=== PATIENT | female | born 1935 | race Caucasian/White ===

== ENCOUNTER 2016-08-03 00:55 | Inpatient (IN) | payer MEDICARE, OTHER ==
[2016-08-03] MEDS ORDERED: SODIUM CHLORIDE 0.9% 1000ML 1,000 ML IVS ONE ×2 (01:14→07:20)
[2016-08-03] MEDS ORDERED: PROMETHAZINE HCL INJ 25 MG in SODIUM CHLORIDE 0.9% 50ML 50 ML IVPB ONE (01:15)
[2016-08-03] MEDS ORDERED: PROMETHAZINE HCL INJ 25 MG/ML VIAL ONE (01:19)
[2016-08-03] MEDS ORDERED: SODIUM CHLORIDE 0.9% 50ML 50 ML ONE (01:20)
[2016-08-03] MEDS ORDERED: ONDANSETRON ODT 8 MG TAB SL SCH (01:30)
[2016-08-03] MEDS ORDERED: AZITHROMYCIN IV 500 MG in SODIUM CHLORIDE 0.9% 250ML 250 ML IVPB ONE (02:05)
[2016-08-03] MEDS ORDERED: SODIUM CHLORIDE 0.9% 250ML 250 ML ONE (02:57)
[2016-08-03] MEDS ORDERED: AZITHROMYCIN IV 500 MG VIAL IVPB ONE (02:57)
--- NOTE | 2016-08-03 06:36 | ED.PDOC ---
History of Present Illness - General Chief Complaint: GI Problem Stated Complaint: N/v/D Time Seen by Provider: 08/03/16 01:08 Source: patient Exam Limitations: no limitations - History of Present Illness Initial Comments: the patient is a 81-year-old female presenting to the emergency room secondary to approximately 3 hours of nausea vomiting and diarrhea. No blood in either. No bile. No fever. No abdominal pain. She has not eaten anything unusual. No back pain. No syncope but she did have a near syncopal episode when getting out of the shower after she had been throwing up a while. She does have a history of some reflux issues. Timing/Duration: 4-6 hours Severity: severe Improving Factors: medication Worsening Factors: nothing Associated Symptoms: loss of appetite, malaise, nausea/vomiting, weakness Allergies/Adverse Reactions: Allergies Penicillins Allergy (Severe, Verified 08/03/16 01:00) Rash SOB, hives Home Medications: Ambulatory Orders Isosorbide Mononitrate [Isosorbide Mononitrate ER] 30 mg PO DAILY 08/02/13 Oxybutynin 5 mg PO BID 08/02/13 Pantoprazole Sodium 40 mg PO DAILY 08/02/13 Propranolol HCl 40 mg PO BID 08/02/13 Simvastatin 80 mg PO HS 08/02/13 Aspirin [Aspirin Childrens] 325 mg PO DAILY 09/27/14 B-Complex Vitamins [B Complex] 1 cap PO DAILY 09/27/14 Folic Acid 800 mcg PO DAILY 09/27/14 Gelatin 600 mg PO DAILY 09/27/14 Azithromycin 500 mg PO DAILY #3 tab 08/03/16 Ondansetron [Zofran Odt] 4 mg PO Q4H PRN #10 tab 08/03/16 Review of Systems - Review of Systems Constitutional: States: malaise, weakness EENTM: States: no symptoms reported Respiratory: States: no symptoms reported Cardiology: States: no symptoms reported Gastrointestinal/Abdominal: States: diarrhea, nausea, vomiting Genitourinary: States: no symptoms reported Musculoskeletal: States: no symptoms reported Skin: States: no symptoms reported Neurological: States: anxiety, weakness - generalized and mild Endocrine: States: no symptoms reported All other Systems: No Change from Baseline Past Medical History (General) - Patient Medical History Hx Seizures: No Hx Stroke: No Hx Dementia: No Hx Asthma: No Hx of COPD: No Hx Cardiac Disorders: Yes Hx Congestive Heart Failure: No Hx Pacemaker: No Hx Hypertension: Yes Hx Thyroid Disease: No Hx Diabetes: No Hx Gastroesophageal Reflux: Yes Hx Renal Disease: No Hx Cancer: No Hx of HIV: No Hx Hepatitis C: No Hx MRSA: No Surgical History: cholecystectomy, Hysterectomy - Vaccination History Hx Influenza Vaccination: Yes - Social History Hx Tobacco Use: Yes - quit 1979 Hx Alcohol Use: No Hx Substance Use: No Hx Substance Use Treatment: No Hx Depression: No - Female History Patient is a Female of Child Bearing Age (10 -59 yrs old): No - Triage Comment ED Triage Comment: nausea and vomiting past3 hours. Epigastric pain. States feeling better after arriving to ER, and given zofran by EMS Family Medical History - Family History Mother Family History: No Known Hx Cardiac Disease: Yes - Father [place] at 63 y/o from [facility] Physical Exam - Physical Exam General Appearance: Alert, Anxious, No apparent distress Eye Exam: bilateral normal Ears, Nose, Throat: normal ENT inspection, normal pharynx Neck: non-tender, full range of motion, supple Respiratory: chest non-tender, lungs clear, normal breath sounds, no respiratory distress, no accessory muscle use Cardiovascular/Chest: normal peripheral pulses, regular rate, rhythm, no edema Peripheral Pulses: radial,right: 2+, radial,left: 2+ Gastrointestinal/Abdominal: non tender, soft Rectal Exam: deferred Back Exam: normal inspection Extremity: normal range of motion, non-tender, normal inspection, no pedal edema , normal capillary refill Neurologic: alert, normal mood/affect, oriented x 3 Skin Exam: normal color Comments: Vital Signs - 24 hr 08/03/16 08/03/16 08/03/16 01:04 02:04 03:00 Temperature 97.2 F L Pulse Rate [ 68 88 72 Apical] Respiratory 18 18 Rate Blood Pressure 154/90 147/70 116/61 [Right Arm] O2 Sat by Pulse 97 93 L Oximetry 08/03/16 08/03/16 05:00 06:00 Temperature Pulse Rate [ 78 74 Apical] Respiratory 18 18 Rate Blood Pressure 137/65 134/60 [Right Arm] O2 Sat by Pulse 99 93 L Oximetry Progress - Progress Progress: 08/03/16 06:37 the patient is a 81-year-old female presenting with what appears to be gastroenteritis. Source is uncertain. The patient will be placed on 3 days of azithromycin. A very small amount of Imodium can be used as an outpatient for the diarrhea if needed. She will be written for Zofran for as needed use to control vomiting. Once a day Pepcid may be beneficial for the next 2 weeks as well. Eating bsnv-zjp-[id number] yogurt may also help. ER warnings are given for any acute worsening. She needs to keep well-hydrated. She needs to follow- up with her primary care doctor before the weekend. - Results/Orders Results/Orders: Laboratory Tests 08/03/16 08/03/16 01:15 06:15 WBC 17.2 H RBC 4.90 Hgb 15.1 Hct 45.1 MCV 92.0 MCH 30.7 MCHC 33.4 RDW 13.2 Plt Count 183 MPV 9.3 Absolute Neuts (auto) 15.00 H Absolute Lymphs (auto) 1.20 Absolute Monos (auto) 0.80 Absolute Eos (auto) 0.10 Absolute Basos (auto) 0.00 Neutrophils % 87.4 H Lymphocytes % 7.2 L Monocytes % 4.8 Eosinophils % 0.4 L Basophils % 0.2 Sodium 139 Potassium 3.7 Chloride 106 Carbon Dioxide 24 Anion Gap 12.7 BUN 22 H Creatinine 0.76 BUN/Creatinine Ratio 28.9 H Random Glucose 103 Serum Osmolality 281.1 Calcium 9.5 Total Bilirubin 0.8 AST 28 ALT 23 Alkaline Phosphatase 76 Creatine Kinase 134 90 CK-MB (CK-2) 3.6 CK-MB (CK-2) % Not Reportable Troponin I < 0.02 Serum Total Protein 7.7 Albumin 4.6 Globulin 3.1 Albumin/Globulin Ratio 1.5 Amylase 52 Lipase 25 TSH 4.92 Urine Color Yellow Urine Appearance Clear Urine pH 5.5 Ur Specific Lowes 1.015 Urine Protein Negative Urine Glucose (UA) Negative Urine Ketones Negative Urine Blood Trace-intact H Urine Nitrite Negative Urine Bilirubin Negative Urine Urobilinogen 0.2 Ur Leukocyte Esterase Small H Urine RBC 0-1 Urine WBC 3-5 H Ur Epithelial Cells 3-5 Urine Bacteria Rare x-ray of abdomen appears benign. EKG shows normal sinus rhythm with a mild right axis deviation. No acute ST segment changes concerning for ischemia. Departure - Departure Clinical Impression: Gastroenteritis Disposition: Discharge to Home or Self Care Condition: Fair Departure Forms: ED Discharge - Pt. Copy, Patient Portal Self Enrollment Instructions: DI for Bacterial Gastroenteritis -- Adult Diet: bland diet Activity: increase activity as tolerated Referrals: Shashi Muniz III, MD [Primary Care Provider] - 1-5 Days Prescriptions: Azithromycin 500 mg PO DAILY #3 tab Ondansetron [Zofran Odt] 4 mg PO Q4H PRN #10 tab PRN Reason: Vomiting Home Medications: Ambulatory Orders Isosorbide Mononitrate [Isosorbide Mononitrate ER] 30 mg PO DAILY 08/02/13 Oxybutynin 5 mg PO BID 08/02/13 Pantoprazole Sodium 40 mg PO DAILY 08/02/13 Propranolol HCl 40 mg PO BID 08/02/13 Simvastatin 80 mg PO HS 08/02/13 Aspirin [Aspirin Childrens] 325 mg PO DAILY 09/27/14 B-Complex Vitamins [B Complex] 1 cap PO DAILY 09/27/14 Folic Acid 800 mcg PO DAILY 09/27/14 Gelatin 600 mg PO DAILY 09/27/14 Azithromycin 500 mg PO DAILY #3 tab 08/03/16 Ondansetron [Zofran Odt] 4 mg PO Q4H PRN #10 tab 08/03/16 Additional Instructions: the patient is a 81-year-old female presenting with what appears to be gastroenteritis. Source is uncertain. The patient will be placed on 3 days of azithromycin. A very small amount of Imodium can be used as an outpatient for the diarrhea if needed. She will be written for Zofran for as needed use to control vomiting. Once a day Pepcid may be beneficial for the next 2 weeks as well. Eating kxsn-adt-ohsjkqy yogurt may also help. ER warnings are given for any acute worsening. She needs to keep well-hydrated. She needs to follow- up with her primary care doctor before the weekend.
[2016-08-03] MEDS ORDERED: DIPHENOXYLATE HCL/ATROPINE 2.5 MG TAB PO ONE (07:16)
[2016-08-03] MEDS ORDERED: ACETAMINOPHEN 500 MG TAB PO ONE (07:55)
--- NOTE | 2016-08-03 08:56 | HP ---
HISTORY OF PRESENT ILLNESS: This 81-year-old, white female who lives at home alone is admitted to the hospital via the Emergency Room because of acute onset with severe presentation of nausea, vomiting and diarrhea. Because of the vomiting, she is also having some epigastric discomfort with a previous history of myocardial infarction, she will have some further observation and stabilization. The patient is quite dehydrated and is unable to get out of the bed to go to the bedside commode because of extreme weakness. She lives alone and is going to be requiring IV rehydration as well as close support. The significant diarrhea appears to be of a brown color. No blood and no fever is associated. Onset about 10:30 last evening. She received about 1.5 liters of IV fluids in the Emergency Room and failed to show significant response. Still awaiting tilt vitals. PAST MEDICAL HISTORY: 1. Myocardial infarction in 1979 with no procedures done. PAST SURGICAL HISTORY: 1. Hysterectomy. 2. Cholecystectomy. 3. Breast biopsy with benign results. CURRENT MEDICATIONS: Please refer to nursing note for list of completed medicines and verified home medications taken. ALLERGIES: PENICILLIN. FAMILY HISTORY: Positive for coronary artery disease and cancer. SOCIAL HISTORY: She has worked as a guidance secretary for many years. She stopped smoking about 36 years ago. REVIEW OF SYSTEMS: GENERAL: No significant weight change. No fever, but she does have chills with her current illness. HEENT: No hearing or visual disturbances. LUNGS: Mild shortness of breath and weakness. CARDIOVASCULAR: Some epigastric chest discomfort, possibly secondary to the emesis, yet further evaluation is necessary. GASTROINTESTINAL: Nausea, vomiting and recurring diarrhea, unable to even get to the bedside commode with having diarrhea stools presenting without her control in the bed. The patient is very weak and requiring continued support. EXTREMITIES: Fairly well formed, no significant edema. NEUROLOGIC: No significant headaches, but very weak and lightheaded. PHYSICAL EXAMINATION: VITAL SIGNS: Afebrile. Pulse 74. Blood pressure 142/62. Pulse oximetry 93% on room air. Weight 80.6 kg. GENERAL: The patient is fairly awake and alert. Her face has a flushed appearance and she has a chill initially, but warmed up with ambient temperature increase. HEENT: Unremarkable. NECK: Supple. LUNGS: Fairly good breath sounds. CARDIOVASCULAR: Heart tones are regular without any significant gallops. ABDOMEN: Increased bowel tone activity. Slight tenderness throughout the abdomen with no organomegaly or point tenderness or rebound tenderness evident. EXTREMITIES: Fairly well-formed. NEUROLOGIC: No focal neurological deficits are noted. The patient is awake, alert, oriented and communicative. LABORATORY: White count 17,200 with 87% neutrophils, hemoglobin 15.1. Chemistries show potassium 3.7, BUN 22, creatinine 0.76, glucose 103, calcium 9.5. Liver enzymes normal. Repeat troponin is 0. Albumin 4.6, TSH 4.92. Urinalysis showed hematuria, some leukocytes present on dipstick, rare bacteria , and urine culture pending. C. difficile negative. Influenza A/B negative. DIAGNOSIS ON ADMISSION: 1. Acute nausea and vomiting with protracted diarrhea with incontinence, possible community acquired, yet continue to evaluate for other etiologies. 2. Significant leukocytosis with white count 17,000. 3. Severe weakness contributing to the patient's inability to ambulate or even transfer from the bed to the bedside commode without major assistance. 4. Mild epigastric discomfort, possibly related to esophageal spasm and esophagitis from vomiting, yet continue to observe to rule out underlying ischemic coronary disease. 5. History of coronary artery disease with history of myocardial infarction in 1979. PLAN: The patient's condition is discussed with Dr. Alexandre, radio time sales supervisor, who feels we should continue with IV hydration. We will continue with observation, get stool tests initiated and observe without significant antibiotics at this time. Slowly advance diet as tolerated. Continue close observation and support. Wait tilt blood pressure vitals. Reevaluate in the morning. #[id number] [facility]
[2016-08-03] MEDS ORDERED: HYDROcodone 5MG/APAP 325MG 1 EA TAB PO PRN (11:46)
[2016-08-03] MEDS ORDERED: ONDANSETRON INJ 4 MG/2 ML VIAL IV PRN (11:46)
[2016-08-03] MEDS ORDERED: SODIUM CHLORIDE 0.9% (FLUSH) 10 ML SYG IV PRN (11:46)
[2016-08-03] MEDS ORDERED: ALUM & MAG HYDROX-SIMETHICONE 30 ML UD PO PRN (11:46)
[2016-08-03] MEDS ORDERED: IV SET AND CAP CHANGE INJ INJ SCH (12:00)
[2016-08-03] MEDS ORDERED: SODIUM CHLORIDE 0.9% 10 ML VIAL INJ PRN (12:06)
[2016-08-03] MEDS: KCL 20 MEQ/NS 1,000 ML IVS PRN ×2 (13:48→23:30)
[2016-08-03] MEDS: PANTOPRAZOLE SODIUM IV 40 MG VIAL IV SCH (13:49)
[2016-08-03] MEDS: DIPHENOXYLATE HCL/ATROPINE 2.5 MG TAB PO PRN ×2 (14:00→17:16)
[2016-08-03] MEDS: PROPRANOLOL HCL 20 MG TAB PO SCH (21:06)
--- NOTE | 2016-08-04 00:28 | PCM.CORE ---
Physician DVT/VTE - Nurse DVT Assessment & Total Each Risk Factor Represents 3 Points: Age over 75 years Each Risk Factor is 1 Point: Obesity (BMI >25) DVT Assessment Score: 4 - 3-4 High Risk Treatments: Sequential Compression Device Pharmacological: Enoxaparin 40 mg SQ Daily
[2016-08-04] MEDS: ENOXAPARIN SODIUM 40 MG/0.4 ML SYG SUBCU SCH (01:18)
[2016-08-04] MEDS: PROPRANOLOL HCL 20 MG TAB PO SCH ×2 (09:03→20:45)
[2016-08-04] MEDS: KCL 20 MEQ/NS 1,000 ML IVS PRN ×2 (09:12→17:47)
[2016-08-04] MEDS: PANTOPRAZOLE SODIUM IV 40 MG VIAL IV SCH (12:43)
[2016-08-04] MEDS: DIPHENOXYLATE HCL/ATROPINE 2.5 MG TAB PO PRN (15:09)
[2016-08-04] MEDS: POTASSIUM CHLORIDE 10 MEQ TAB PO SCH ×2 (17:48→20:45)
--- NOTE | 2016-08-04 18:57 | PN ---
DATE: 08/04/16 SUBJECTIVE: The patient is lying in the bed, head slightly elevated. She is smiling and actually appears to be much improved. She is still having some loose stools but much less than yesterday. When asked about the events of yesterday, she says that her memory is very foggy regarding the events of yesterday again illustrating the significance of the toxic state that she was in when she was entered and admitted to the hospital. OBJECTIVE: Afebrile, pulse 74, blood pressure 136/57, pulse oximetry 95% on room air. Weight is 80.6 kilos. GENERAL: The patient is awake, alert and oriented, and communicative. She is in much less distress today. LUNGS: Clear. HEART: Tones regular. ABDOMEN: Does have persistence of the elevated and active bowel tone activity. Some mild tenderness generally but much improved. LABORATORY: Stool guaiac is positive on 1 exam. White count has dropped from 17,200 to 5,000 with 59% neutrophils overnight. Chemistry has shown potassium dropping from 3.7 to 3.2 because of the diarrhea. BUN has improved from 22 to 11 and creatinine is stable at 0.71. Glucose 91, calcium 7.9 while albumin is 3. Cardiac enzymes zero. Urinalysis shows some hematuria and a trace of WBCs noted. Urine culture is pending. Influenza A and B negative. Clostridium Difficile negative. Stool fecal leukocytes are positive and culture is pending. ASSESSMENT: 1. Acute nausea and vomiting with protracted severe diarrhea with incontinence possible community acquired with further evaluation with cultures, etc., pending showing some clinical improvement. 2. Significant leukocytosis with white count of 17,000 returning to normal overnight. 3. Severe weakness as well as altered level of consciousness on admission showing improvement. 4. History of coronary artery disease with a history of a myocardial infarction in 1979. PLAN: Will continue the current treatment program. Will supplement with some extra potassium because of the potassium loss from the diarrhea. Recheck an additional stool for hemoccult. Will slowly advance the diet as tolerated. Reevaluate in the morning with laboratory studies and await cultures in the morning. Further followup in the clinic after discharge with Dr. Muniz will be important. #[id number] [facility]
[2016-08-05] MEDS: ENOXAPARIN SODIUM 40 MG/0.4 ML SYG SUBCU SCH (00:17)
[2016-08-05] MEDS: KCL 20 MEQ/NS 1,000 ML IVS PRN ×2 (02:55→15:39)
[2016-08-05] MEDS ORDERED: POTASSIUM CHLORIDE 20 MEQ TAB PO SCH (07:30)
[2016-08-05] MEDS: POTASSIUM CHLORIDE 10 MEQ TAB PO SCH ×2 (07:40→16:41)
[2016-08-05] MEDS: PROPRANOLOL HCL 20 MG TAB PO SCH ×2 (08:46→20:51)
[2016-08-05] MEDS: PANTOPRAZOLE SODIUM IV 40 MG VIAL IV SCH (11:35)
[2016-08-05] MEDS: DIPHENOXYLATE HCL/ATROPINE 2.5 MG TAB PO PRN (14:24)
[2016-08-05] MEDS ORDERED: LOPERAMIDE 1 MG/5 ML 120 ML BTTL PO ONE (15:19)
--- NOTE | 2016-08-05 17:42 | PN ---
DATE: 08/05/16 SUPERVISING PHYSICIAN: Froy Erazo M.D. SUBJECTIVE: The patient is sitting in bed, just finished eating breakfast. She had pancakes for breakfast. Says she feels a little better. She is still having some diarrhea but not to the extent as it was prior to admission. She notes that she is feeling still weak and is concerned about being able to go home, and be able to get around without assistance. OBJECTIVE: VITAL SIGNS: T max 97.4, pulse 66, blood pressure 141/62, respirations 18, O2 sat 96% on room air. Tilt vital signs showed supine at 145/ 65, sitting 149/71 and standing 147/69 with no significant change in heart rate between 60 and 70. I's and O's show a positive balance of 628 with 3078 in, 3250 out. She has had multiple bowel movements. Weight 81.15 kg which is increased from admission of 79.3. GENERAL: The patient is alert. Appears to be in good spirits. She is in no distress. LUNGS: Clear to auscultation bilaterally. HEART: regular rate and rhythm. ABDOMEN: Obese but soft. There is no tenderness noted on palpation today. She does have hyperactive bowel sounds. LABORATORY: She did have 1 guaiac that was positive. Hematology shows white count 6.8, hemoglobin 12.2, hematocrit 37.1, platelet count 104,000. Differential shows to be within normal limits. Chemistries show normal electrolytes with potassium 4.0, BUN 9, creatinine 7, glucose 90, calcium 8.0. Urine culture final results show growth of 3 organisms or more suggestive of poor quality specimen. Suggest recollection. Clostridium Difficile toxin was negative. Stool cultures preliminary at 48 hours shows no enteric pathogens isolated. RADIOLOGY: There are no additional radiographic studies today. ASSESSMENT: 1. Nausea and vomiting with protracted severe diarrhea and incontinence possibly community acquired with current stool cultures showing no enteric pathogens with the patient showing some clinical improvement, but continues with diarrhea. 2. Significant leukocytosis with a white count of 17,000 normalizing after IV fluids. 3. Severe weakness with some altered level of consciousness on admission showing some improvement clinically with IV fluids and increased p.o. intake. 4. History of coronary artery disease with a history of myocardial infarction in 1979. PLAN: Will continue to try to advance her diet today. She will continue with IV fluids until she starts adequate p.o. intake. Will plan to repeat studies in the morning and await final culture results of stool studies. Anticipate probably discharge in the morning after which time she will need close followup in the outpatient setting with Dr. Muniz. Until then, will follow the patient closely and treat appropriately. #[id number] [facility]
[2016-08-06] MEDS: ENOXAPARIN SODIUM 40 MG/0.4 ML SYG SUBCU SCH (00:20)
[2016-08-06] MEDS: KCL 20 MEQ/NS 1,000 ML IVS PRN (00:20)
[2016-08-06] MEDS: POTASSIUM CHLORIDE 10 MEQ TAB PO SCH (07:12)
[2016-08-06] MEDS: PROPRANOLOL HCL 20 MG TAB PO SCH (08:44)
[2016-08-06 09:28] VITALS: BP 162/86; TEMP 97; O2SAT 97
[2016-08-06] MEDS: DIPHENOXYLATE HCL/ATROPINE 2.5 MG TAB PO PRN (09:53)
--- NOTE | 2016-08-06 14:39 | DS ---
SUPERVISING PHYSICIAN: Froy Erazo M.D. DISCHARGE DIAGNOSIS: 1. Gastroenteritis likely viral with stool culture showing no enteric pathogens isolated. 2. Severe dehydration secondary to number 1 improved after IV therapy. 3. Leukocytosis on admission secondary to number 1. 4. Severe weakness with some altered level of consciousness on admission secondary to number 1 and number 2 showing improvement after IV therapy. 5. History of coronary artery disease with history of myocardial infarctions in 1979. HISTORY OF PRESENT ILLNESS: Ms. Jarrett is a 81-year-old female patient who lives at home alone and was admitted to the hospital from the Emergency Room because of acute onset with severe nausea, vomiting and diarrhea. Because of the vomiting, she was having some epigastric discomfort and with a history of having a previous myocardial infarction, she was placed in observation for further rule out of acute cardiac event, although her troponins were negative on admission. It was noted in the E. R. prior to admission that the patient was dehydrated and was unable to get out of the bed to go to the bedside commode due to the severe weakness. She lives alone and is requiring IV rehydration as well as close support. The significant diarrhea appeared to be brown in color with no blood or fever noted on admission. Onset of diarrhea was 10:30 the previous evening prior to admission. In the Emergency Room, she received 1.5 liters of IV fluids and failed to show significant response, therefore she was admitted to the hospital for continuation of treatment and evaluation. LABORATORY: White count on admission was 17.2. After initiation of therapy with IV fluids the patient's white count did normalized and at discharge was 7.9. Hemoglobin and hematocrit stayed stable and at time of discharge was 12.9 and 38.6, initially it was 15.1 and 48.5 elevated secondary to dehydration. Differential did show a left shift but resolved after IV therapy. Platelet count remained within normal limits although on the low end of normal, at discharge was 117,000. Chemistries on admission showed normal electrolytes with potassium 3.7, BUN 22, creatinine 0.76, calcium 9.5, glucose 103. Liver functions showed to be within normal limits. Troponin was run times 2 with both being less than 0.02. Potassium did drop to a low of 3.2, however with self limitation of IV fluids at discharge had normalized at 3.9. BUN was 9, creatinine 0.54 at time of discharge. Urine on admission showed just a trace of blood with a small amount of leukocyte esterase on dipstick. Microscopic showed to be within normal limits. She had 2 occult bloods, one that was positive and one negative on date of discharge. MICROBIOLOGY: Urine culture showed growth of 3 organisms or more suggesting poor quality sample. She had Influenza A and B antigen exam which was negative for both A or B. Clostridium Difficile toxin A and B were negative. She had a stool leukocyte that was positive. Stool culture shows no enteric pathogens after 72 hours of incubation. RADIOLOGY: Abdominal x-ray on admission per radiology interpretation showed no acute cardiopulmonary disease and no acute intraabdominal processes. HOSPITAL COURSE: Ms. Jarrett was admitted on 08/03/16 as noted in History of Present Illness for persistent nausea and vomiting. She was started on IV therapy that included saline and potassium replacement. She progressed slowly and on day 3 had finally resolved from having any nausea or vomiting, and was maintaining good I's and O's with maintenance of IV fluid and advancement of her diet. By discharge date, she had clinically improved well enough to go home. She was no longer having any nausea or vomiting, and was still having stools but much less in duration and quantity since admission. She was discharged in stable condition. PLAN: The patient was discharged on 08/06/16 to have close clinical followup with Dr. Muniz, her primary care physician in the following week. She was encouraged to increase fluid intake with Pedialyte, Gatorade or any other drink of choice and encouraged to avoid caffeine-containing drinks. She was told to take spya-rgo-repafmf Imodium as needed, but it diarrhea persisted despite Imodium she was to call Dr. Muniz' office or return to the hospital. She was also encouraged to take ytsh-rhe-qofiloh probiotics or yogurt to prevent any worsening of diarrhea and to help reestablish the normal lex of the intestinal tract. She was given a prescription for Zofran for nausea and instructed if her nausea was not relieved with Zofran or should return, she should return to the Emergency Room for further evaluation. For her diet, she was encouraged to increase as tolerated and to avoid any high residual foods or high fiber. She was to increase her activity as tolerated and cautioned to go slowly when changing positions from a sitting to standing to help prevent in any dizziness or any falls related to. She was to return to the hospital should she have no improvement or any worsening of her symptoms. At time of discharge, she was given 1 new prescription: 1. Zofran 4 mg every 4 hours as needed, #10. All other medications as prior to admission to the hospital were continued. Condition at discharge was good. The patient was stable. #[id number] [facility]
--- NOTE | 2016-08-28 23:49 | RAD ---
EXAM DESCRIPTION: Abdomen Series CLINICAL HISTORY: 81 years, Female, n/v/d COMPARISON: [None.] TECHNIQUE: [Acute abdominal series] FINDINGS: [The lungs are clear without focal consolidation or pleural effusion.] [The heart is normal in size. The mediastinal contours are normal.] There are vascular calcifications along the aortic arch. [The bowel gas pattern is normal.][There is no evidence of free air.][There are no abnormal masses or calcifications.][Limited evaluation of the liver, spleen, and kidneys demonstrate no gross abnormalities.] Clips are present from prior cholecystectomy.[The osseous structures are age appropriate.] IMPRESSION: 1. [No acute cardiopulmonary disease.]2. [No acute intraabdominal process]. Electronically signed by: Mert Denis MD 08/03/2016 2:14 AM [employer]
== END 2016-08-06 11:03 | disposition home or self-care (01) | DRG 392 ==
LOC: ER 00:55 → MS 08:55 → INTOOBSV 08:55 → OBSVTOIN 08:55
PROVIDERS: ADMIT Emergency Medicine; ATTEND Nurse Practitioner Family
DX: A08.4 Viral intestinal infection, unspecified (principal); E86.0 Dehydration; I25.10 Atherosclerotic heart disease of native coronary artery without angina pectoris; K21.9 Gastro-esophageal reflux disease without esophagitis; I10 Essential (primary) hypertension; I25.2 Old myocardial infarction; Z88.0 Allergy status to penicillin; Z87.891 Personal history of nicotine dependence

== ENCOUNTER → 2016-09-15 | Outpatient (CLI) | payer MEDICARE, OTHER | END | disposition home or self-care (01) | LOC: GMAL 11:28 | PROVIDERS: ATTEND Family Medicine | DX: D51.3 Other dietary vitamin B12 deficiency anemia (principal); R53.82 Chronic fatigue, unspecified; E55.9 Vitamin D deficiency, unspecified ==

== ENCOUNTER → 2016-12-16 | Outpatient (CLI) | payer MEDICARE, OTHER ==
--- NOTE | 2016-12-19 07:33 | CT ---
EXAM DESCRIPTION: Lower Extremity CLINICAL HISTORY: 81 years Female, FX OF THE RIGHT TALUS. Talar pain, foot pain COMPARISON: None. TECHNIQUE: CT of the right foot was performed without IV contrast. This exam was performed according to our departmental dose-optimization program, which includes automated exposure control, adjustment of the mA and/or kV according to patient size and/or use of iterative reconstruction technique. FINDINGS: There is a tiny nondisplaced fracture involving the tip of the lateral malleolus. The medial malleolus, tibiotalar joint and talar dome are well-maintained. There is cortical irregularity involving the anterolateral aspect of the calcaneus with a few adjacent bone fragments consistent with fracture. A soft tissue mass at the same location may represent hematoma or pathologic fracture. The calcaneocuboid joint is anatomically aligned, and no cuboid fracture is seen. There is subtle cortical irregularity involving the talar head and neck laterally which may present additional nondisplaced fracture. There is a small calcification along the medial aspect of the talonavicular joint which does not appear acute. No donor site is seen. The navicular is intact. The TMT joints, metatarsals and phalanges are unremarkable. IMPRESSION: Slightly comminuted and moderately displaced fracture involving the far anterolateral aspect of the calcaneus with cortical destruction and soft tissue mass at the same location which may be related to hematoma. Findings suggest the possibility of underlying calcaneofibular ligament injury. Considering lack of additional bone lesions and lack of relevant history, other soft tissue mass and pathologic fracture is considered less likely. Tiny nondisplaced fracture involving the tip of the lateral malleolus and additional tiny nondisplaced fracture involving the talar head/neck laterally. Electronically signed by: Paddy Bella MD 12/19/2016 7:32 AM CDT Workstation: [id number]
== END | disposition home or self-care (01) ==
LOC: CT 09:14
PROVIDERS: ATTEND Family Medicine
DX: S92.141A Displaced dome fracture of right talus, initial encounter for closed fracture (principal); X58.XXXA Exposure to other specified factors, initial encounter

== ENCOUNTER → 2016-12-20 | Outpatient (CLI) | payer MEDICARE, OTHER | END | disposition home or self-care (01) | LOC: GMAL 14:25 | PROVIDERS: ATTEND Family Medicine | DX: E55.9 Vitamin D deficiency, unspecified (principal) ==

== ENCOUNTER → 2017-03-29 | Outpatient (CLI) | payer MEDICARE, OTHER | LOC: GMAL 10:20 | PROVIDERS: ATTEND Family Medicine | DX: E55.9 Vitamin D deficiency, unspecified (principal) ==

== ENCOUNTER → 2017-04-12 | Outpatient (CLI) | payer MEDICARE, OTHER ==
--- NOTE | 2017-04-13 13:53 | MAM ---
EXAM DESCRIPTION: 3D Screening BILATERAL CLINICAL HISTORY: 81 yearsFemaleSCREENING no complaints. Remote family history of breast cancer. Postmenopausal. Taking HRT five or more years ago. Left breast biopsy benign.. COMPARISON: 3-D screening digital mammography 01/21/2016 and 01/19/2015.. Report from prior examination also reviewed. TECHNIQUE: Bilateral CC and MLO projection full-field images, 3-D tomosynthesis digital mammographic technique. Also bilateral synthesized CC/ MLO full-field images. CAD not utilized. FINDINGS: The breast parenchymal density pattern is: Heterogeneously dense breast tissue, which may obscure small masses. No skin thickening or nipple retraction bilateral axillary lymph nodes. Bilateral solitary microcalcifications, bilateral vascular and ductal calcifications. Stable 1.5 cm intramammary lymph node upper outer quadrant posterior third left breast. No focal, stellate mass or density, focal asymmetry , and no suspicious microcalcifications bilaterally Stable mammograms compared to prior study (December 2014), taking into account differences in mammographic technique IMPRESSION: BI-RADS CATEGORY: 2 - BENIGN FINDINGS. FOLLOW UP: Routine digital bilateral screening, one year interval from April 2017. Written communication explaining the IMPRESSION and follow-up, will be mailed to the patient and referring health care provider. According to the [employer], yearly mammograms are recommended starting at age 40 and continuing as long as a woman is in good health. Any breast change noted on a breast self-exam should be reported promptly to the patient's healthcare provider. Breast MRI is recommended for women with an approximately 20-25% or greater lifetime risk of breast cancer, including women with a strong family history of breast or ovarian cancer and women who have been treated for Hodgkin's disease. A negative mammographic report should not delay tissue diagnosis in patients with significant clinical history or physical findings. Extremely dense breast tissue limits the sensitivity of digital mammography. Electronically signed by: Real Ruffin MD 04/13/2017 1:52 PM CDT
== END | disposition home or self-care (01) ==
LOC: MAMMO 08:22
PROVIDERS: ATTEND Family Medicine
DX: Z12.31 Encounter for screening mammogram for malignant neoplasm of breast (principal)
CPT/HCPCS: 77063; G0202

== ENCOUNTER 2017-07-26 18:52 | Observation (INO) | payer MEDICARE, OTHER ==
[2017-07-26] MEDS ORDERED: NITROGLYCERIN 0.4 MG 25 EA TAB SL ONE (19:35)
[2017-07-26] MEDS ORDERED: SODIUM CHLORIDE 0.9% (FLUSH) 10 ML SYG IV PRN (19:35)
[2017-07-26] MEDS ORDERED: ASPIRIN TABLET 325 MG TAB PO ONE (19:35)
--- NOTE | 2017-07-26 19:50 | RAD ---
EXAM DESCRIPTION: Chest,1 View CLINICAL HISTORY: chest pain COMPARISON: 02/15/2010 FINDINGS: Cardiac silhouette is within normal limits. There is no focal parenchymal or pleural disease. Visualized osseous structures are within normal limits. IMPRESSION: No evidence of acute cardiopulmonary disease. Electronically signed by: Real Portillo 07/26/2017 7:49 PM [employer] MACHINE [employer]CH[employer]IC
--- NOTE | 2017-07-26 19:54 | ED.PDOC ---
History of Present Illness - General Chief Complaint: Chest Pain/NM Time Seen by Provider: 07/26/17 19:51 Source: patient, Vital Signs reviewed Exam Limitations: no limitations Additional Information: 82 YEAR OLD PRESENTS WITH CHEST PAIN IN THE RETROSTERUM LAST 45 MIN RADIATING TOT HE LEFT SHOUDLER AND LEFT ARM nO ASSOCIATED NECK OR JAW PAIN NO SHORTNESS OF BREATH NO DIAPHORESIS NO SYNCOPE - History of Present Illness Timing/Duration: 1 hour, intermittent Severity/Quality: moderate Location: substernal Chest Pain Radiation: shoulders Activities at Onset: none Prior Chest Pain/Cardiac Workup: no prior chest pain Improving Factors: nothing Worsening Factors: nothing Allergies/Adverse Reactions: Allergies Penicillins Allergy (Severe, Verified 07/26/17 20:00) Rash SOB, hives Home Medications: Ambulatory Orders Isosorbide Mononitrate [Isosorbide Mononitrate ER] 30 mg PO DAILY 08/02/13 Pantoprazole Sodium 40 mg PO DAILY 08/02/13 Propranolol HCl 20 mg PO BID 08/02/13 Simvastatin 80 mg PO HS 08/02/13 B-Complex Vitamins [B Complex] 1 cap PO DAILY 09/27/14 Gelatin 600 mg PO DAILY 09/27/14 Aspirin 325 mg PO DAILY 08/03/16 Ondansetron [Zofran Odt] 4 mg PO Q4H PRN #10 tab 08/03/16 Oxybutynin Chloride 5 mg PO BID 08/03/16 Review of Systems - Review of Systems Constitutional: States: no symptoms reported EENTM: States: no symptoms reported Respiratory: States: no symptoms reported Cardiology: States: chest pain Gastrointestinal/Abdominal: States: no symptoms reported Genitourinary: States: no symptoms reported Musculoskeletal: States: no symptoms reported Skin: States: no symptoms reported Neurological: States: no symptoms reported Endocrine: States: no symptoms reported Hematologic/Lymphatic: States: no symptoms reported Past Medical History (General) - Patient Medical History Hx Seizures: No Hx Stroke: No Hx Dementia: No Hx Asthma: No Hx of COPD: No Hx Cardiac Disorders: Yes Hx Congestive Heart Failure: No Hx Pacemaker: No Hx Hypertension: Yes Hx Thyroid Disease: No Hx Diabetes: No Hx Gastroesophageal Reflux: Yes Hx Renal Disease: No Hx Cancer: No Hx of HIV: No Hx Hepatitis C: No Hx MRSA: No - Vaccination History Hx Influenza Vaccination: Yes - Social History Hx Tobacco Use: Yes - quit 1979 Hx Alcohol Use: No Hx Substance Use: No Hx Substance Use Treatment: No Hx Depression: No Family Medical History - Family History Mother Family History: No Known Hx Cardiac Disease: Yes - Father NM at 63 y/o from AMI Physical Exam - Physical Exam General Appearance: Alert, Well Developed, Well Groomed, Well Hydrated, Well Nourished Eyes, Ears, Nose, Throat Exam: PERRL/EOMI, TMs normal, pharynx normal Neck: non-tender, full range of motion, supple Respiratory: chest non-tender, lungs clear, normal breath sounds, no respiratory distress, no accessory muscle use Cardiovascular/Chest: normal peripheral pulses, regular rate, rhythm, no edema, no gallop, no JVD Peripheral Pulses: radial,right: 2+, radial,left: 2+, femoral,right: 2+, femoral ,left: 2+ Gastrointestinal/Abdominal: normal bowel sounds, non tender, soft, no organomegaly, no pulsatile mass Extremity: normal range of motion, non-tender, normal inspection 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, no motor/sensory deficits, alert Progress - Results/Orders Results/Orders: Laboratory Tests 07/26/17 07/26/17 07/26/17 19:42 19:42 21:57 WBC 5.5 RBC 4.50 Hgb 13.8 Hct 41.2 MCV 91.6 MCH 30.7 MCHC 33.5 RDW 13.1 Plt Count 100 L MPV 8.9 Absolute Neuts (auto) 2.90 Absolute Lymphs (auto) 1.80 Absolute Monos (auto) 0.70 Absolute Eos (auto) 0.10 Absolute Basos (auto) 0.00 Neutrophils % 53.7 Lymphocytes % 32.0 Monocytes % 12.7 H Eosinophils % 1.1 Basophils % 0.5 PT 11.9 INR 1.050 PTT (SP) 30.3 D-Dimer, Quantitative < 230 Sodium 140 Potassium 2.7 L Chloride 98 L Carbon Dioxide 29 Anion Gap 15.7 BUN 14 Creatinine 0.72 BUN/Creatinine Ratio 19.4 Random Glucose 85 Serum Osmolality 279.1 Calcium 8.5 Magnesium 1.7 L Creatine Kinase 265 H* CK-MB (CK-2) 1.6 CK-MB (CK-2) % Not Reportable Troponin I < 0.02 < 0.02 B-Natriuretic Peptide 158.0 H - Consult/PCP Time Called: 22:19 - 2 EKG WERE REVIEWED 18 50 HRS AND 21 [address] TO [address] T CHANGES NO ISCHEMIA INJURY OR INFARCTION NOTED - Additional EKG/XRAY/Consults EKG #2: Sinus, no ST T wave changes Departure - Departure Clinical Impression: Chest pain Time of Disposition: 22:43 Disposition: Admit Patient Condition: Good Departure Forms: ED Discharge - Pt. Copy, Patient Portal Self Enrollment Instructions: DI for Chest Pain Referrals: Shashi Muniz III, MD [Primary Care Provider] - 1-2 Weeks Home Medications: Ambulatory Orders Isosorbide Mononitrate [Isosorbide Mononitrate ER] 30 mg PO DAILY 08/02/13 Pantoprazole Sodium 40 mg PO DAILY 08/02/13 Propranolol HCl 20 mg PO BID 08/02/13 Simvastatin 80 mg PO HS 08/02/13 B-Complex Vitamins [B Complex] 1 cap PO DAILY 09/27/14 Gelatin 600 mg PO DAILY 09/27/14 Aspirin 325 mg PO DAILY 08/03/16 Ondansetron [Zofran Odt] 4 mg PO Q4H PRN #10 tab 08/03/16 Oxybutynin Chloride 5 mg PO BID 08/03/16
[2017-07-26] MEDS ORDERED: POTASSIUM BICARBONATE 25 MEQ TAB PO ONE (19:55)
[2017-07-27] MEDS ORDERED: NITROGLYCERIN 0.4 MG 25 EA TAB SL PRN (00:20)
[2017-07-27] MEDS ORDERED: SODIUM CHLORIDE 0.9% (FLUSH) 10 ML SYG IV PRN (00:20)
[2017-07-27] MEDS ORDERED: ACETAMINOPHEN 325 MG TAB PO PRN (00:20)
[2017-07-27] MEDS ORDERED: MORPHINE SULFATE INJ 10 MG/ML VIAL IV PRN (00:20)
[2017-07-27] MEDS ORDERED: MAGNESIUM SULFATE PREMIX 2GM 2 GM in PREMIX BAG 1 BAG IVPB ONE (00:26)
[2017-07-27] MEDS ORDERED: IV SET AND CAP CHANGE INJ INJ SCH (00:30)
[2017-07-27] MEDS ORDERED: MAGNESIUM SULFATE PREMIX 2GM 50 ML IVPB ONE (01:22)
[2017-07-27] MEDS ORDERED: POTASSIUM CHLORIDE 20 MEQ TAB PO ONE ×2 (03:27→09:20)
[2017-07-27] MEDS ORDERED: PANTOPRAZOLE SODIUM TAB 40 MG PO SCH (06:30)
[2017-07-27] MEDS ORDERED: ASPIRIN TABLET 325 MG TAB ONE (07:19)
[2017-07-27] MEDS ORDERED: SODIUM CHLORIDE 0.9% (FLUSH) 10 ML SYG IV SCH (09:00)
[2017-07-27 11:17] VITALS: O2SAT 91
[2017-07-27] MEDS ORDERED: BETAMETHASONE ACETATE/BETAMETH 6 MG/ML VIAL IM ONE (12:59)
[2017-07-27] MEDS ORDERED: AZITHROMYCIN 250 MG TAB PO ONE ×2 (12:59→14:03)
[2017-07-27] MEDS ORDERED: FLUTICASONE PROP 0.05% NASAL 16 GM BTTL BNAS SCH (13:00)
[2017-07-27] MEDS ORDERED: FLUTICASONE PROP 0.05% NASAL 16 GM BTTL ONE (14:03)
[2017-07-27 16:10] VITALS: BP 134/75; TEMP 98.3
[2017-07-28] MEDS ORDERED: ASPIRIN TABLET 325 MG TAB PO SCH (09:00)
--- NOTE | 2017-07-29 17:36 | SSS ---
SUPERVISING PHYSICIAN: Joni Alvarez M.D. DISCHARGE DIAGNOSES: 1. Chest pain, rule out myocardial infarction. Myocardial infarction was ruled out with negative cardiac enzymes and no return of chest pain. 2. Electrolyte imbalance including hypokalemia and hypomagnesemia. 3. Acute sinusitis. 4. Gastroesophageal reflux disease. 5. Anxiety with depression. 6. Coronary artery disease. 7. Hypertension. HISTORY OF PRESENT ILLNESS: This is an 82 year-old female patient who is typically very active and lives alone. She visits her daily at the group home. On the day prior to admission, she started having some substernal chest pain that lasted about 30 to 45 minutes. It radiated to her left shoulder and the left side of her neck. She had no diaphoresis or shortness of breath with the pain. Because it did not go away, she decided to come to the Emergency Room. In the Emergency Room her initial CBC was within normal limits with the exception of her platelet count was slightly low at 100. D-dimer was less than 230. Potassium was low at 2.7. She was given some oral potassium in the Emergency Room. Her chloride was also low at 98 with a magnesium of 1.7. Initial troponin was negative and subsequent troponin 2 hours later was negative. She had a slightly elevated BNP of 158. I was called for admission to the hospital for chest pain rule out myocardial infarction and hypokalemia. Her chest x-ray in the Emergency Room showed no evidence of acute cardiopulmonary disease. She was placed in Observation overnight. Overnight she was given 2 grams of magnesium and then she was given some oral potassium. Her morning labs showed a potassium of 3.3 with chloride of 100 and calcium was slightly low at 8.3. The remainder of her CMP was basically within normal limits. Triglycerides were 118, cholesterol 145, LDL 84.8 and HDL was 40. Her serial cardiac enzymes showed a negative troponin throughout with a slightly elevated creatinine kinase of 208. She had no further complaints of chest pain. She was given an additional dose of p.o. potassium before discharge and she will be discharged home in stable condition. The patient complained of sinus congestion with facial pressure and that she has been sneezing and coughing over the last few days. She was put on azithromycin for her sinus infection and given some Flonase plus she received a Celestone 6 mg IM injection. PAST MEDICAL HISTORY: 1. Anxiety. 2. Coronary artery disease. 3. Carotid artery stenosis. 4. Depression. 5. Essential hypertension. 6. Gastroesophageal reflux disease. PAST SURGICAL HISTORY: 1. Cholecystectomy. 2. Hysterectomy with bilateral oophorectomy. 3. Breast biopsy. 4. Bladder suspension. 5. Cataract removal. CURRENT MEDICATIONS: ALLERGIES: PENICILLIN AND LEXAPRO. SOCIAL HISTORY: She is retired. She is . Her lives at [facility]. She is a previous smoker. She quit smoking in 1979. She occasionally drinks alcoholic beverages. She denies any illicit drug use. REVIEW OF SYSTEMS: Ten point review of systems is negative except as per History of Present Illness. PHYSICAL EXAMINATION: VITAL SIGNS: She is afebrile, heart rate 68, blood pressure 138/67, respiratory rate 16, O2 sat is 96% on room air. GENERAL: This is an 82 year-old female patient who is lying in her hospital bed. HEENT: Normocephalic and atraumatic. She has clear nasal discharge with frontal and maxillary sinus pressure bilaterally. Oropharynx is clear. Oral mucous membranes are moist. NECK: Supple without mass. RESPIRATORY: Essentially clear to auscultation bilaterally. CHEST: There is equal rise and fall of the chest with inspiration and expiration. CARDIOVASCULAR: Regular rate and rhythm. ABDOMEN: Soft, nondistended, non-tender. Bowel sounds are positive. EXTREMITIES: No cyanosis, clubbing or edema. NEUROLOGIC: She is awake, alert and oriented times three. LABORATORY: Labs and films are as per History of Present Illness. DISCHARGE PLAN: The patient will be discharged home in stable condition. She is to resume her previous diet. She is to increase her activity as tolerated. She is to see Dr. Muniz for followup on 08/02/17 at 8:15 AM. I have instructed her to go to the clinic the day before to have her electrolytes drawn that includes a magnesium, so those results will be available for him when he sees her at her exam. She is to return to the hospital or call Dr. Muniz' office for any further problems or complications. DISCHARGE MEDICATIONS: 1. Propranolol. 2. Pantoprazole. 3. Simvastatin. 4. Isosorbide mononitrate. 5. Oxybutynin. 6. Aspirin. 7. Fluoxetine. 8. Azithromycin. 9. Fluticasone. #[id number] [facility]
== END 2017-07-27 17:20 | disposition home or self-care (01) ==
LOC: ER 18:52 → INTOOBSV 23:51 → OBSVTOIN 23:51 → MS 23:51
PROVIDERS: ADMIT Nurse Practitioner Acute Care; ATTEND Nurse Practitioner Acute Care
DX: R07.2 Precordial pain (principal); E87.6 Hypokalemia; E83.42 Hypomagnesemia; J01.90 Acute sinusitis, unspecified; K21.9 Gastro-esophageal reflux disease without esophagitis; F34.1 Dysthymic disorder; F41.8 Other specified anxiety disorders; I25.10 Atherosclerotic heart disease of native coronary artery without angina pectoris; I10 Essential (primary) hypertension; Z66 Do not resuscitate; Z79.82 Long term (current) use of aspirin; Z79.899 Other long term (current) drug therapy; Z88.0 Allergy status to penicillin; Z88.8 Allergy status to other drugs, medicaments and biological substances; Z87.891 Personal history of nicotine dependence; Z82.49 Family history of ischemic heart disease and other diseases of the circulatory system
CPT/HCPCS: 36415 ×5; 71045; 80048 ×2; 80061; 82550 ×2; 82553 ×2; 83880; 84484 ×3; 85025 ×2; 85379; 85610; 85730; 93005 ×3; 94760; 94762; 96365; 96372; 97162; 97530; 99284; G0378; G8978; G8979; G8980; J3475; Q0144

== ENCOUNTER → 2017-08-01 | Outpatient (CLI) | payer MEDICARE, OTHER | LOC: GMAL 10:42 | PROVIDERS: ATTEND Family Medicine | DX: R25.8 Other abnormal involuntary movements (principal) ==

== ENCOUNTER → 2017-09-20 | Outpatient (CLI) | payer MEDICARE, OTHER | LOC: GMAL 10:54 | PROVIDERS: ATTEND Family Medicine | DX: R79.89 Other specified abnormal findings of blood chemistry (principal); E55.9 Vitamin D deficiency, unspecified ==

== ENCOUNTER 2017-10-11 14:36 | Inpatient (IN) | payer MEDICARE, OTHER ==
--- NOTE | 2017-10-11 14:52 | ED.PDOC ---
History of Present Illness - General Chief Complaint: Trauma Stated Complaint: fall Time Seen by Provider: 10/11/17 14:50 Source: RN notes reviewed, Vital Signs reviewed, EMS notes reviewed Exam Limitations: no limitations Additional Information: 82 YEAR OLD COMPLAINTS OF PAIN IN THE RIGHT HIP AFTER A FALL JUST PRIOR TO COMING NO LOC INJURY IS LIMITED TOT HE RIGHT HIP UNABLE TO WEIGHT BEAR SECONDARY TO PAIN PE RIGHT LOWER EXTREMITY IS EXTERNALLY ROTATED AND TENDER ON THE HIP NO NEURO VASCULAR DEFICIT HER PAST MEDICAL HISTORY CAD OK 1979 HTN DETACHED RETINA LEFT EYE ( 3 WEEKS AGO ) - History of Present Illness Occurred: just prior to arrival Severity: moderate Pain Location: none, lower extremity Method of Injury: fall Improving Factors: nothing Worsening Factors: movement Loss of Consciousness: no loss of consciousness Associated Symptoms (Fall): denies symptoms Allergies/Adverse Reactions: Allergies Penicillins Allergy (Severe, Verified 10/11/17 14:51) Rash SOB, hives Home Medications: Ambulatory Orders Isosorbide Mononitrate [Isosorbide Mononitrate ER] 30 mg PO DAILY 08/02/13 Pantoprazole Sodium 40 mg PO DAILY 08/02/13 Propranolol HCl 20 mg PO BID 08/02/13 Simvastatin 80 mg PO HS 08/02/13 Oxybutynin Chloride 5 mg PO BID 08/03/16 Aspirin [Aspirin EC Low Dose] 81 mg PO QAM 07/27/17 Review of Systems - Review of Systems Constitutional: States: no symptoms reported EENTM: States: no symptoms reported Respiratory: States: no symptoms reported Cardiology: States: no symptoms reported Gastrointestinal/Abdominal: States: no symptoms reported Genitourinary: States: no symptoms reported Musculoskeletal: States: no symptoms reported Skin: States: no symptoms reported Neurological: States: no symptoms reported Endocrine: States: no symptoms reported Past Medical History (General) - Patient Medical History Hx Seizures: No Hx Stroke: No Hx Dementia: No Hx Asthma: No Hx of COPD: No Hx Cardiac Disorders: Yes Hx Congestive Heart Failure: No Hx Pacemaker: No Hx Hypertension: Yes Hx Thyroid Disease: No Hx Diabetes: No Hx Gastroesophageal Reflux: Yes Hx Renal Disease: No Hx Cancer: No Hx of HIV: No Hx Hepatitis C: No Hx MRSA: No - Vaccination History Hx Influenza Vaccination: Yes - Social History Hx Tobacco Use: Yes - quit 1979 Hx Alcohol Use: No Hx Substance Use: No Hx Substance Use Treatment: No Hx Depression: No Hx Physical Abuse: No Hx Emotional Abuse: No Family Medical History - Family History Mother Family History: No Known Hx Cardiac Disease: Yes - Father OK at 63 y/o from AMI Physical Exam - Physical Exam General Appearance: Alert, Comfortable Head Injury: no evidence of injury, active bleeding Eye Exam: bilateral normal ENT Exam: hearing grossly normal, no evidence of ENT injury, no dental injury Neck Exam: non-tender, full range of motion, normal alignment, normal inspection Cardiovascular/Respiratory: regular rate, rhythm, normal peripheral pulses, no JVD, normal breath sounds Gastrointestinal/Abdominal: normal bowel sounds, non tender, soft, no organomegaly, no pulsatile mass Back Exam: normal inspection, no CVA tenderness Extremity Exam: other - RIGHT HIP TENDER EXTERNAL ROTATION NOTED 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, normal mood/affect, oriented x 3 Progress - Results/Orders Results/Orders: Laboratory Tests 10/11/17 10/11/17 10/11/17 14:25 14:25 14:25 WBC 10.6 RBC 4.10 L Hgb 12.8 Hct 38.1 MCV 92.9 MCH 31.2 H MCHC 33.5 RDW 13.6 Plt Count 185 MPV 8.8 Absolute Neuts (auto) 5.70 Absolute Lymphs (auto) 3.90 H Absolute Monos (auto) 0.80 Absolute Eos (auto) 0.20 Absolute Basos (auto) 0.10 Neutrophils % 53.4 Lymphocytes % 36.9 Monocytes % 7.5 Eosinophils % 1.5 Basophils % 0.7 PTT (SP) 30.3 Sodium 137 Potassium 4.4 Chloride 105 Carbon Dioxide 23 Anion Gap 13.4 BUN 16 Creatinine 0.76 BUN/Creatinine Ratio 21.1 H Random Glucose 132 H Serum Osmolality 276.9 Calcium 9.2 Laboratory Tests 10/11/17 10/11/17 10/11/17 14:25 14:25 14:25 WBC 10.6 RBC 4.10 L Hgb 12.8 Hct 38.1 MCV 92.9 MCH 31.2 H MCHC 33.5 RDW 13.6 Plt Count 185 MPV 8.8 Absolute Neuts (auto) 5.70 Absolute Lymphs (auto) 3.90 H Absolute Monos (auto) 0.80 Absolute Eos (auto) 0.20 Absolute Basos (auto) 0.10 Neutrophils % 53.4 Lymphocytes % 36.9 Monocytes % 7.5 Eosinophils % 1.5 Basophils % 0.7 PT INR PTT (SP) 30.3 Sodium 137 Potassium 4.4 Chloride 105 Carbon Dioxide 23 Anion Gap 13.4 BUN 16 Creatinine 0.76 BUN/Creatinine Ratio 21.1 H Random Glucose 132 H Serum Osmolality 276.9 Calcium 9.2 10/11/17 14:25 WBC RBC Hgb Hct MCV MCH MCHC RDW Plt Count MPV Absolute Neuts (auto) Absolute Lymphs (auto) Absolute Monos (auto) Absolute Eos (auto) Absolute Basos (auto) Neutrophils % Lymphocytes % Monocytes % Eosinophils % Basophils % PT 12.0 INR 1.030 PTT (SP) Sodium Potassium Chloride Carbon Dioxide Anion Gap BUN Creatinine BUN/Creatinine Ratio Random Glucose Serum Osmolality Calcium - EKG/XRAY/CT EKG: Sinus Departure - Departure Clinical Impression: Fracture of hip Time of Disposition: 15:38 Disposition: Admit Patient Condition: Good Departure Forms: ED Discharge - Pt. Copy, Patient Portal Self Enrollment Instructions: DI for Trauma Referrals: Shashi Muniz III, MD [Primary Care Provider] - 1-2 Weeks Home Medications: Ambulatory Orders Isosorbide Mononitrate [Isosorbide Mononitrate ER] 30 mg PO DAILY 08/02/13 Pantoprazole Sodium 40 mg PO DAILY 08/02/13 Propranolol HCl 20 mg PO BID 08/02/13 Simvastatin 80 mg PO HS 08/02/13 Oxybutynin Chloride 5 mg PO BID 08/03/16 Aspirin [Aspirin EC Low Dose] 81 mg PO QAM 07/27/17 Comments: PATIENT X RAY REVIEWED FRACTURE RIGHT FEMORAL NECK CHEST NORMAL DISCUSSED WITH DR APONTE SUGGEST TO ADMIT TO MEDICAL SERVICES NPO AFTER MIDNIGHT PLANS TO OPERATE TOMORROW MORNING
[2017-10-11] MEDS ORDERED: fentaNYL CITRATE INJ 50 MCG/ML AMP IV ONE ×3 (15:03→17:27)
[2017-10-11] MEDS ORDERED: fentaNYL CITRATE INJ 50 MCG/ML AMP ONE (15:04)
--- NOTE | 2017-10-11 15:22 | RAD ---
EXAM DESCRIPTION: Chest,1 View CLINICAL HISTORY: 82 years Female, s/p fall,right hip and groin pain COMPARISON: July 26, 2017 TECHNIQUE: AP portable chest. FINDINGS: Fair expansion of the lungs is evident without consolidation, layering effusion, or large mass. Heart size and vascularity appear normal for AP technique and degree of inspiration. No gross bony, hilar, or mediastinal abnormalities are noted. IMPRESSION: Normal chest, one view Electronically signed by: Joni Rodriguez MD 10/11/2017 3:20 PM CDT
--- NOTE | 2017-10-11 15:23 | RAD ---
EXAM DESCRIPTION: Hip,Right 2 Views CLINICAL HISTORY: s/p fall,right hip and groin pain COMPARISON: None Available. TECHNIQUE: AP/frog leg lateral FINDINGS: Two views of the right hip demonstrate fracture of the right femoral neck with varus deformity and foreshortening with the fracture apparently involving the mid neck with a small amount of neck present both the distal trochanteric component and the attached to the femoral head. No acetabular injury or abnormality of the pubic ramus or ischio is seen. IMPRESSION: Varus deformity and fracture of the right femoral neck. Electronically signed by: Joni Rodriguez MD 10/11/2017 3:22 PM CDT
--- NOTE | 2017-10-11 15:38 | RAD ---
EXAM DESCRIPTION: Pelvis CLINICAL HISTORY: 82 years Female, s/p fall,right hip and groin pain COMPARISON: None. FINDINGS: A single view of the pelvis demonstrates the bony pelvis intact without fracture. The left hip is intact. Varus deformity and fracture of the right femoral neck is noted. No abnormality of the pubic or ischio rami noted. IMPRESSION: Fracture of the right hip involving the femoral neck with varus deformity Electronically signed by: Joni Rodriguez MD 10/11/2017 3:36 PM CDT
--- NOTE | 2017-10-11 16:56 | HP ---
SUPERVISING PHYSICIAN: Froy Erazo M.D. CHIEF COMPLAINT: Right hip pain. HISTORY OF PRESENT ILLNESS: This is an 82 year-old female who was in her yard today with her son and they were trimming some greenery around the house. She basically tripped over her own feet and fell. There was no loss of consciousness. No dizziness that precipitated the fall. However, she developed the right hip pain and came to the Emergency Room for that reason. In the Emergency Room, she was found to have a right femoral neck fracture. She was given some pain medications and Dr. Choudhary, the orthopedic surgeon, was contacted and agreed to consult and according to the E. R. physician, plans on doing surgery tomorrow. Therefore the patient is being admitted to the medicine services at this time. She did have an EKG which did not show any abnormalities. Reportedly she had a history of a myocardial infarction back in 1979 but no intervention was done at that time. PAST MEDICAL HISTORY: 1. Myocardial infarction back in 1979. 2. Hypertension. 3. Overactive bladder. 4. Hyperlipidemia. 5. Depression with anxiety. PAST SURGICAL HISTORY: 1. Cholecystectomy. 2. Hysterectomy. 3. Cataract surgery. 4. Retinal detachment surgery. CURRENT MEDICATIONS: 1. Isosorbide mononitrate 30 mg p.o. daily. 2. Protonix 40 mg p.o. daily. 3. Propranolol 20 mg p.o. b.i.d. 4. Simvastatin 80 mg p.o. every h.s. 5. Oxybutynin 5 mg p.o. b.i.d. 6. Aspirin 81 mg p.o. every AM. ALLERGIES: PENICILLIN. FAMILY HISTORY: Father who of a myocardial infarction at age 63. SOCIAL HISTORY: Distant history of smoking. No alcohol. No illicit drugs. REVIEW OF SYSTEMS: CONSTITUTIONAL: No fever or chills. No recent weight loss or weight gain. HEENT: No headaches, vision changes, ear pain, nasal congestion or throat pain. She did have a recent retinal detachment. LUNGS: No cough, hemoptysis or pleuritic chest pain. CARDIOVASCULAR: No chest pain, palpitations or peripheral edema. GASTROINTESTINAL: No nausea, vomiting, diarrhea or constipation or abdominal pain. GENITOURINARY: No dysuria, frequency or flank pain. HEMATOLOGIC: No easy bruising or transfusion reactions. MUSCULOSKELETAL: Positive for right hip pain. No other joint pain, joint swelling or muscle cramps. NEUROLOGIC: No seizures. No syncope or paresthesias. ENDOCRINE: No polydipsia, polyuria or polyphagia. No heat or cold intolerance. PHYSICAL EXAMINATION: VITAL SIGNS: Blood pressure 124/82, heart rate 62, respiratory rate 18, temperature 98.2, oxygen saturation 95%. GENERAL: Ms. Jarrett is an 82 year-old female in active distress secondary to pain after being moved from the E. R. cart to the bed. HEENT: Head is normocephalic and atraumatic. EYES: Pupils are equal and reactive. NOSE: No drainage. THROAT: Moist mucosa. NECK: Supple. Midline trachea. No jugular venous distention. CHEST: Symmetrical with equal rise and fall of the chest with inspiration and expiration. Lung sounds are clear to auscultation bilaterally. CARDIOVASCULAR: Regular rate and rhythm. Normal S1 and S2. ABDOMEN: Soft. Positive bowel sounds. GENITOURINARY: Exam is deferred. EXTREMITIES: Lower extremities with an outwardly rotated right lower extremity. Tenderness to palpation over the right hip area. RADIOLOGY: X-rays done in the E. R. revealed a right femoral neck fracture. LABORATORY: Pretty much unremarkable CBC with stable H&H. Chemistry is unremarkable. There is a mildly elevated glucose of 132. Urine with no evidence of urinary tract infection. ASSESSMENT: 1. Accidental fall status post right femoral neck fracture. 2. Hypertension. 3. History of myocardial infarction 4. Hyperlipidemia. PLAN: At this time, the patient will be admitted and the goal for pain control overnight and surgical intervention tomorrow for hip fracture repair. Dr. Choudhary has already been consulted by the E. . physician. Preoperative orders have been placed in the computer, including type and screen, and preoperative on- call antibiotics. I will resume her home medications at this time and monitor overnight. Will utilize Fentanyl for pain control as she got this in the E. R. and tolerated it well. #[id number] [facility]
[2017-10-11] MEDS ORDERED: SODIUM CHLORIDE 0.9% (FLUSH) 10 ML SYG IV PRN ×2 (17:11→17:15)
[2017-10-11] MEDS ORDERED: IV SET AND CAP CHANGE INJ INJ SCH (17:30)
[2017-10-11] MEDS: IV SET AND CAP CHANGE INJ INJ SCH (17:30)
[2017-10-11] MEDS: LACTATED RINGERS 1,000 ML IVS PRN (18:02)
[2017-10-11] MEDS: tiZANidine 4 MG TAB PO PRN (18:30)
[2017-10-11] MEDS ORDERED: SIMVASTATIN 20 MG TAB ONE (19:30)
[2017-10-11] MEDS ORDERED: PROPRANOLOL HCL 20 MG TAB ONE (19:30)
[2017-10-11] MEDS: fentaNYL CITRATE INJ 50 MCG/ML AMP IV PRN ×2 (19:39→22:50)
[2017-10-11] MEDS: OXYBUTYNIN CL 5 MG TAB PO SCH (20:44)
[2017-10-11] MEDS ORDERED: PROPRANOLOL HCL 20 MG PO SCH (21:00)
[2017-10-11] MEDS ORDERED: NON-FORMULARY MEDICATION 1 EA MIS (Simvastatin [Simvastatin] 80 MG) PO SCH (21:00)
[2017-10-12] MEDS: fentaNYL CITRATE INJ 50 MCG/ML AMP IV PRN ×2 (02:28→11:40)
[2017-10-12] MEDS: LACTATED RINGERS 1,000 ML IVS PRN ×3 (02:30→18:45)
[2017-10-12] MEDS ORDERED: ceFAZolin SODIUM 2 GRAMS PREMI 50 ML IVPB ONE (04:53)
[2017-10-12] MEDS ORDERED: VANCOMYCIN HCL INJ 1,000 MG VIAL IVPB ONE (04:53)
[2017-10-12] MEDS ORDERED: SODIUM CHLORIDE 0.9% 250ML 250 ML ONE (04:53)
[2017-10-12] MEDS ORDERED: HYDROmorphone HCL INJ 2 MG/ML VIAL IV ONE (05:09)
[2017-10-12] MEDS ORDERED: ceFAZolin SODIUM 1 GM in SODIUM CHL 0.9% 50ML MIN-BAG+ 50 ML IVPB ONE (07:00)
[2017-10-12] MEDS ORDERED: ceFAZolin SODIUM 2 GRAMS PREMI 2 GM in PREMIX BAG 1 BAG IVPB ONE (07:00)
[2017-10-12] MEDS ORDERED: VANCOMYCIN HCL INJ 1,000 MG in SODIUM CHLORIDE 0.9% 250ML 250 ML IVPB ONE (07:00)
[2017-10-12] MEDS ORDERED: BUPIVACAINE 0.25% W/EPI 50 ML VIAL INJ ONE ×2 (08:57→12:37)
[2017-10-12] MEDS ORDERED: ceFAZolin SODIUM 1 GM VIAL ONE (08:58)
[2017-10-12] MEDS ORDERED: ROCURONIUM BROMIDE 10 MG/ML VIAL ONE (09:50)
[2017-10-12] MEDS ORDERED: fentaNYL CITRATE INJ 50 MCG/ML AMP ONE (09:50)
[2017-10-12] MEDS ORDERED: LACTATED RINGERS 1,000 ML ONE (09:51)
[2017-10-12] MEDS ORDERED: LIDOCAINE 2 % GEL 5 ML TUBE TOP ONE (09:51)
[2017-10-12] MEDS ORDERED: MORPHINE SULFATE *EPIDURAL* 0.5 MG/ML VIAL ONE (09:52)
[2017-10-12] MEDS: ASPIRIN EC 81 MG TAB PO SCH (10:47)
[2017-10-12] MEDS: OXYBUTYNIN CL 5 MG TAB PO SCH ×2 (10:48→21:17)
[2017-10-12] MEDS: ISOSORBIDE MONONITRATE (IMDUR) 30 MG TAB PO SCH (10:49)
[2017-10-12] MEDS: PANTOPRAZOLE SODIUM TAB 40 MG PO SCH (10:49)
[2017-10-12] MEDS: PROPRANOLOL HCL 20 MG TAB PO SCH ×2 (10:49→21:17)
[2017-10-12] MEDS ORDERED: ceFAZolin SODIUM 1 GM VIAL IVPB ONE (12:20)
[2017-10-12] MEDS: ceFAZolin SODIUM 1 GM VIAL ONE ×2 (12:57→14:00)
[2017-10-12] MEDS: VANCOMYCIN HCL INJ 1,000 MG VIAL IVPB ONE ×2 (12:57→14:00)
[2017-10-12] MEDS ORDERED: ONDANSETRON INJ 4 MG/2 ML VIAL ONE (13:00)
[2017-10-12] MEDS ORDERED: ATROPINE SULFATE INJ (MDV) 0.4 MG/ML 20ML VIAL ONE (13:00)
[2017-10-12] MEDS ORDERED: NEOSTIGMINE METHYLSULFATE 1 MG/ML ML IV ONE (13:00)
[2017-10-12] MEDS ORDERED: DEXAMETHASONE INJ 10 MG/ML VIAL ONE (13:00)
[2017-10-12] MEDS ORDERED: PROPOFOL 200 MG/20 ML VIAL IV ONE (13:00)
--- NOTE | 2017-10-12 17:10 | RAD ---
EXAM DESCRIPTION: Pelvis,2 or More Views CLINICAL HISTORY: 82 years Female, post-op COMPARISON: None. TECHNIQUE: X-rays of the pelvis with hips in neutral and frog-leg lateral positions FINDINGS: Total right hip arthroplasty is noted. No prosthetic complication or dislocation. No hardware fracture. Bones of the pelvic ring appear intact. Degenerative changes are seen in the lower L-spine. Sacrum appears intact. Degenerative narrowing of the medial left hip joint. Frog-leg lateral view shows no fracture or dislocation. Vascular calcification is present in the pelvis. IMPRESSION: Negative for fracture or dislocation. Electronically signed by: Willian Pastor MD 10/12/2017 5:08 PM CDT
--- NOTE | 2017-10-12 17:12 | RAD ---
EXAM DESCRIPTION: Hip,Right 2 Views CLINICAL HISTORY: 82 years, Female, post-op COMPARISON: None TECHNIQUE: AP and frog leg lateral views of the right hip FINDINGS: 2 views of the right hip reveal total right hip arthroplasty. Minimal air in the soft tissues consistent with recent surgery. No lytic bone lesion complicating fracture. IMPRESSION: Total right hip arthroplasty. Electronically signed by: Willian Pastor MD 10/12/2017 5:10 PM CDT
[2017-10-12] MEDS: ENOXAPARIN SODIUM 30 MG/0.3 ML SYG SUBCU SCH (18:12)
--- NOTE | 2017-10-12 20:27 | PN ---
DATE: 10/12/17 SUPERVISING PHYSICIAN: Froy Erazo M.D. SUBJECTIVE: The patient just recently returned from surgery and PACU for a hemiarthroplasty procedure. The procedure was performed without any complications. The patient is alert on examination and appears to be comfortable. OBJECTIVE: VITAL SIGNS: Temperature 98.2, pulse 66, blood pressure 104/65, respirations 15, satting 94% on 2 liters nasal cannula. I's and O's show a positive balance of 1422 with 1772 in, 350 out. Weight is 74 kg. CHEST: Lungs are clear to auscultation, just slightly diminished towards the bases. HEART: Regular rate and rhythm. ABDOMEN: Soft, non-tender. Positive bowel sounds. Right hip has a surgical dressing in place. Capillary refill is brisk. No reported neurovascular or sensory deficits. Pulses are strong bilaterally. NEUROLOGIC: She is alert and oriented times three. LABORATORY: Preoperative H&H was 13.4 and 40.1 with a white count 11,900. Coagulation studies were normal. Chemistries today showed a mild hyponatremia at 130 with normal potassium at 3.9, BUN 11, creatinine 0.55, serum osmolality 260, calcium 9.0. RADIOLOGY: Hip and pelvis x-ray postoperative shows pelvis to be without any fracture or dislocation per radiology interpretation. Hip x-ray of the right hip shows total right hip arthroplasty. ASSESSMENT: 1. Status postoperative day zero for an acute right femoral neck fracture status post accidental same level fall. 2. Hypertension. 3. History of myocardial infarction. 4. Hyperlipidemia. PLAN: Will continue to monitor and follow the patient closely as she progresses through her postoperative physical therapy efforts. Will continue to work on discharge planning as the patient progresses through patient and meets her goals. Anticipate discharge at Physical Therapy and Dr. Choudhary's discretion. Until then, will continue to monitor and treat appropriately. #[id number] [facility]
[2017-10-12] MEDS ORDERED: SIMVASTATIN 20 MG TAB PO SCH (21:00)
[2017-10-13] MEDS ORDERED: diphenhydrAMINE HCL 25 MG CAP ONE (01:45)
[2017-10-13] MEDS ORDERED: diphenhydrAMINE HCL 25 MG CAP PO PRN (01:47)
[2017-10-13] MEDS: ENOXAPARIN SODIUM 30 MG/0.3 ML SYG SUBCU SCH ×2 (02:10→14:07)
[2017-10-13] MEDS: LACTATED RINGERS 1,000 ML IVS PRN (04:35)
[2017-10-13] MEDS: fentaNYL CITRATE INJ 50 MCG/ML AMP IV PRN (07:43)
[2017-10-13] MEDS: ISOSORBIDE MONONITRATE (IMDUR) 30 MG TAB PO SCH (08:31)
[2017-10-13] MEDS: PANTOPRAZOLE SODIUM TAB 40 MG PO SCH (08:32)
[2017-10-13] MEDS: ASPIRIN EC 81 MG TAB PO SCH (08:32)
[2017-10-13] MEDS: PROPRANOLOL HCL 20 MG TAB PO SCH ×2 (08:32→21:15)
[2017-10-13] MEDS: OXYBUTYNIN CL 5 MG TAB PO SCH ×2 (08:32→20:30)
--- NOTE | 2017-10-13 09:05 | PN ---
DATE: 10/13/17 SUBJECTIVE: Ms. Jarrett is doing well. Her pain is well controlled. She is sitting up in bed without significant discomfort. OBJECTIVE: Afebrile. Vital signs stable. Dressing is clean, dry and intact. ASSESSMENT: Status post hemiarthroplasty. PLAN: The plan is to begin weight-bearing as tolerated today. [facility][id number] [facility]
[2017-10-13] MEDS ORDERED: ACETAMINOPHEN 500 MG TAB PO PRN (12:40)
[2017-10-13] MEDS ORDERED: PROMETHAZINE HCL INJ 12.5 MG in SODIUM CHLORIDE 0.9% 50ML 50 ML IVPB PRN (12:40)
[2017-10-13] MEDS ORDERED: ONDANSETRON INJ 4 MG/2 ML VIAL IV PRN (12:40)
[2017-10-13] MEDS ORDERED: MORPHINE SULFATE INJ 10 MG/ML VIAL IM PRN (12:40)
[2017-10-13] MEDS ORDERED: MORPHINE SULFATE INJ 10 MG/ML VIAL IV PRN (12:40)
[2017-10-13] MEDS: HYDROcodone 5MG/APAP 325MG 1 EA TAB PO PRN ×2 (12:59→17:15)
[2017-10-13] MEDS: SODIUM CHLORIDE 0.9% (FLUSH) 10 ML SYG IV SCH ×2 (12:59→20:30)
[2017-10-13] MEDS: tiZANidine 4 MG TAB PO PRN (15:46)
--- NOTE | 2017-10-13 16:39 | PN ---
DATE: 10/13/17 SUPERVISING PHYSICIAN: Froy Erazo M.D. SUBJECTIVE: The patient is postoperative day 1 after hip replacement hemiarthroplasty. She appears to be comfortably. Is in no acute distress. She is eating lunch and has had good pain management. She has actually been able to participate with Physical Therapy this morning. OBJECTIVE: VITAL SIGNS: She remains afebrile, temperature 98.1, pulse 68, blood pressure 109/63, respirations 18, satting 96% on nasal cannula at rest. I 's and O's show a positive balance of 2200 with 3252 in, 1050 out. Weight is 74.5 kg. CHEST: Lungs are clear to auscultation. HEART: Regular rate and rhythm. ABDOMEN: Soft but non-tender with positive bowel sounds. EXTREMITIES: There is a dressing in place in the right hip that is clean and dry distally. Pulses are strong with capillary refill brisk. NEUROLOGIC: She is alert and oriented times three. LABORATORY: Postoperative H&H is 11.2 and 32.8. Chemistries show now normal electrolytes with potassium 3.7, sodium 136, BUN 11, creatinine 0.67, calcium 8.6. ASSESSMENT: 1. Postoperative day 1 for an acute right femoral neck fracture status post same level fall with a hemiarthroplasty repair by orthopedic surgeon, Dr. Choudhary. 2. Hypertension. 3. History of myocardial infarctions. 4. Hyperlipidemia. PLAN: Will follow the patient closely as she continues to progress through her physical therapy efforts. I have resumed her home medications and she is now on p.o. [place] for pain control. She is encouraged to do deep breathing exercises and lower extremity exercises to prevent any postoperative complications. She will continue to work with Physical Therapy and will anticipate discharge at their discretion once she has met her patient goals. Until discharge, will continue to monitor and treat appropriately. #[id number] [facility]
[2017-10-13] MEDS: DOCUSATE CALCIUM 240 MG CAP PO SCH (20:30)
[2017-10-13] MEDS: SIMVASTATIN 20 MG TAB PO SCH (20:30)
[2017-10-14] MEDS: HYDROcodone 5MG/APAP 325MG 1 EA TAB PO PRN ×4 (01:58→20:16)
[2017-10-14] MEDS: ENOXAPARIN SODIUM 30 MG/0.3 ML SYG SUBCU SCH ×2 (02:06→14:56)
[2017-10-14] MEDS: FLUoxetine HCL 20 MG CAP PO SCH (08:59)
[2017-10-14] MEDS: OXYBUTYNIN CL 5 MG TAB PO SCH ×2 (08:59→21:14)
[2017-10-14] MEDS: PROPRANOLOL HCL 20 MG TAB PO SCH ×2 (08:59→21:14)
[2017-10-14] MEDS: PANTOPRAZOLE SODIUM TAB 40 MG PO SCH (08:59)
[2017-10-14] MEDS: MAGNESIUM OXIDE 400 MG TAB PO SCH (08:59)
[2017-10-14] MEDS: ISOSORBIDE MONONITRATE (IMDUR) 30 MG TAB PO SCH (08:59)
[2017-10-14] MEDS: ASPIRIN EC 81 MG TAB PO SCH (09:00)
[2017-10-14] MEDS: SODIUM CHLORIDE 0.9% (FLUSH) 10 ML SYG IV SCH ×2 (09:01→21:14)
--- NOTE | 2017-10-14 13:39 | PN ---
DATE: 10/14/17 SUPERVISING PHYSICIAN: Sanket Geronimo M.D. SUBJECTIVE: The patient is postoperative day 2 and is doing well. She is up to the bedside chair. She has had fairly good control of her pain. She has had no other further complaints. She is having good nutritional intake. I did visit with her and her family at length about possible [facility] referral for continuing rehabilitation versus [facility]. At this point, they are wanting to do a [facility] consultation. OBJECTIVE: VITAL SIGNS: She remains afebrile, temperature 98.6, pulse 64, blood pressure 125/71, respirations 18, satting 93% on nasal cannula at rest. I 's and O's show a positive balance of 650 with 2100 in, 1450 out. Weight is 75.8 kg. CHEST: Lungs are clear to auscultation. HEART: Regular rate and rhythm. ABDOMEN: Obese but soft, non-tender. Positive bowel sounds. EXTREMITIES: Bulky dressing remains in place on the right hip. No obvious drainage. No signs of infection. Pulses distally are strong with capillary refill brisk. She is moving all extremities ad kelly. NEUROLOGIC: She is alert and oriented times three. LABORATORY: H&H is 9.1 and 26.3. ASSESSMENT: 1. Postoperative day 2 for an acute right femoral neck fracture status post same level fall with a hemiarthroplasty repair by orthopedic surgeon, Dr. Choudhary. 2. Hypertension, stable. 3. History of myocardial infarctions. 4. Hyperlipidemia. PLAN: Will continue to follow the patient through her physical therapy recovery phase. I did discuss with the patient and family possibly doing a [facility], or as it is called now [facility], referral for continued rehabilitation. They are in favor of [facility] and have requested consultation. A consultation has been placed and is expected to happen Monday, therefore we will anticipate at least discharging either to [facility] on Monday for continued rehabilitation versus going to [facility]. Until then, will continue to monitor and treat appropriately. [facility][id number] [facility]
--- NOTE | 2017-10-14 13:53 | PN ---
DATE: 10/14/17 SUBJECTIVE: She is resting well. Her pain is well controlled. OBJECTIVE: Afebrile, vital signs are stable. Dressing is clean, dry and intact. ASSESSMENT: 1. Status post hemiarthroplasty. PLAN: The plan at this point is for her to continue weightbearing as tolerated and continue on strengthening. [facility][id number] [facility]
[2017-10-14] MEDS: IV SET AND CAP CHANGE INJ INJ SCH (18:19)
[2017-10-14] MEDS: SIMVASTATIN 20 MG TAB PO SCH (21:13)
[2017-10-14] MEDS: DOCUSATE CALCIUM 240 MG CAP PO SCH (21:15)
[2017-10-15] MEDS: tiZANidine 4 MG TAB PO PRN (01:54)
[2017-10-15] MEDS: ENOXAPARIN SODIUM 30 MG/0.3 ML SYG SUBCU SCH (02:04)
[2017-10-15] MEDS: HYDROcodone 5MG/APAP 325MG 1 EA TAB PO PRN ×2 (04:28→09:36)
[2017-10-15 06:00] VITALS: TEMP 98.6
[2017-10-15] MEDS: ASPIRIN EC 81 MG TAB PO SCH (09:27)
[2017-10-15] MEDS: PANTOPRAZOLE SODIUM TAB 40 MG PO SCH (09:27)
[2017-10-15] MEDS: PROPRANOLOL HCL 20 MG TAB PO SCH (09:27)
[2017-10-15] MEDS: SODIUM CHLORIDE 0.9% (FLUSH) 10 ML SYG IV SCH (09:27)
[2017-10-15] MEDS: FLUoxetine HCL 20 MG CAP PO SCH (09:27)
[2017-10-15] MEDS: MAGNESIUM OXIDE 400 MG TAB PO SCH (09:27)
[2017-10-15] MEDS: OXYBUTYNIN CL 5 MG TAB PO SCH (09:27)
[2017-10-15] MEDS: ISOSORBIDE MONONITRATE (IMDUR) 30 MG TAB PO SCH (09:27)
[2017-10-15 11:52] VITALS: BP 101/78; O2SAT 94
--- NOTE | 2017-10-15 19:27 | DS ---
SUPERVISING PHYSICIAN: Sanket Geronimo M.D. DISCHARGE DIAGNOSIS: 1. Postoperative day 3 for an acute right femoral neck fracture status post same level fall with a hemiarthroplasty repair performed by orthopedic surgeon , Dr. Choudhary. 2. Hypertension, stable. 3. History of previous myocardial infarctions. 4. Hyperlipidemia. REASON FOR HOSPITALIZATION: Ms. Jarrett is an 82 year-old female patient who was working in her yard on 10/11/17 with her son trying to trim some greenery around the house. She fell over her feet. Denied any loss of consciousness or any dizziness, but developed right hip pain shortly after. She came to the E. R. via private owned vehicle and in the Emergency Room she was found to have a right femoral neck fracture. She was given some pain medications and orthopedic surgeon, Dr. Choudhary, did a consultation with the plan of doing a hemiarthroplasty on 10/12/17. The patient was admitted in stable condition for further evaluation and treatment. LABORATORY: On admission, white count was 10,600. It did go after surgery up to 11,900. Hemoglobin and hematocrit initially on admission was 12.8 and 38.1, at discharge last hemoglobin was 9.1 and hematocrit 26.3. Differential showed on admission to be within normal limits. No significant change since admission prior to discharge. Coagulation studies initially on admission showed a normal PT and PTT. Chemistries showed on admission normal electrolytes with BUN 16, creatinine 0.76, calcium 9.2, at discharge to [facility] on 10/13/14. Chemistry showed continued normal electrolytes with BUN 11, creatinine 0.67. She had 1 urinalysis that was completed prior to surgery which showed to be within normal limits. MICROBIOLOGY: No microbiology specimens were submitted. RADIOLOGY: In the E. R., she had a hip and pelvis x-ray per radiology interpretation there was a varus deformity fracture of the right femoral neck. Pelvis x-ray per radiology interpretation showed fracture of the right lower hip involving the femoral neck with varus deformity. No abnormalities of the pubic or ischial rami noted. She also had a chest x-ray single view chest in the Emergency Department per radiology interpretation showed normal chest one view. Postoperative x-rays were completed and per radiology interpretation showed a total right hip arthroplasty. Please see those 2 reports for full details. CONSULTATION: Dr. Choudhary, Orthopedic Services. Please see his operative notes for full details. HOSPITAL COURSE: Ms. Jarrett was admitted on 10/11/17 as noted above for a right hip fracture. She was admitted and stabilized, and taken to surgery on and had a right hemiarthroplasty performed by Dr. Santiago Choudhary with no complications noted. The patient recovered without complications and continued with physical therapy, but had not yet met her goals. Ss she does live alone and is 82 years of age, it was felt initially the possible course of action was to go to [facility] but the patient opted that she would rather stay in [facility], therefore the patient now is being admitted to [facility] for further rehabilitation. PLAN: Ms. Jarrett is to be discharged from Acute Care on 10/15/17 and admitted to [facility] on same date for ongoing physical therapy and further rehabilitation efforts. Diet was regular diet as tolerated. Activity is for physical therapy. Condition on discharge was stable and improved. [facility][id number] [facility]
[2017-10-16] MEDS ORDERED: MAGNESIUM HYDROXIDE 30 ML UD PO ONE (21:00)
[2017-10-16] MEDS ORDERED: BISACODYL SUPPOSITORY 10 MG PR ONE (21:00)
--- NOTE | 2017-10-20 08:15 | CONS ---
CHIEF COMPLAINT: Right hip pain. HISTORY OF PRESENT ILLNESS: Ms. Jarrett is an 82-year-old female who fell while she was out in the yard. She had the acute onset of pain in the hip and was brought to the Emergency Room. In the Emergency Room, x-rays revealed a femoral neck fracture. Because of the presence of the fracture, she was admitted and I was consulted. She denies any other injury associated with this , denies any radiation of pain and denies any neurologic symptoms. PAST MEDICAL HISTORY: 1. Myocardial infarction. 2. Hypertension. 3. Hyperlipidemia. 4. Depression. PAST SURGICAL HISTORY: 1. Cholecystectomy. 2. Hysterectomy. 3. Cataract removal. 4. Retinal detachment surgery. MEDICATIONS: 1. Isosorbide. 2. Protonix. 3. Propranolol. 4. Simvastatin. 5. Oxybutynin. 6. Aspirin. ALLERGIES: PENICILLIN. SOCIAL HISTORY: The patient does not use alcohol, tobacco or drugs. FAMILY HISTORY: None pertinent to today's complaint. REVIEW OF SYSTEMS: Negative except as indicated in the History of Present Illness. PHYSICAL EXAMINATION: VITAL SIGNS: Blood pressure 124/82. Heart rate 62. Respirations 18. Temperature 98. O2 saturation 95%. MENTAL STATUS: The patient is awake, alert, and is able to give a good history and participate in the physical. The patient is oriented to person, place and time. SKIN: Normal tone and turgor. HEENT: Normocephalic, atraumatic. Pupils equal, round and reactive. Mucosal membranes are moist. NECK: Normal range of motion. No thyromegaly, no lymphadenopathy. CHEST: Normal respiratory excursion. CARDIAC: Regular rate and rhythm. No murmurs, rubs or gallops. MUSCULOSKELETAL: The bilateral upper extremities show full active range of motion without pain. She has intact sensation in the extremities and they are warm and well perfused. She has 5/5 strength. The left lower extremity shows no pain with gentle range of motion of the hip or knee. She has no pain with range of motion of the ankle or digits. Sensation is intact. Strength is 5/5 in plantar flexion and the extremity is warm and well perfused. The right lower extremity shows severe pain with any attempted range of motion of the hip. She has intact sensation. There is no deformity of the extremity. The extremity is warm and well perfused. IMAGING: X-rays show a displaced femoral neck fracture. ASSESSMENT: 1. Femoral neck fracture. PLAN: At this point, we have discussed the risks, benefits and alternatives to operative therapy. Given the fracture configuration, her best option would be hemiarthroplasty. We have discussed the risks, benefits, and alternatives to that and we are going to proceed with hemiarthroplasty. #[id number] [facility]ENTER[facility]
--- NOTE | 2017-10-20 08:22 | OP ---
PREOPERATIVE DIAGNOSIS: 1. Femoral neck fracture. POSTOPERATIVE DIAGNOSIS: 1. Femoral neck fracture. PROCEDURE: 1. Hemiarthroplasty. SURGEON: Santiago Choudhary MD. [employer] SOFTWARE DEVELOPER: Real Álvarez CST, [employer]. ANESTHESIA: General. COMPLICATIONS: None. FINDINGS: Displaced transcervical femoral neck fracture. INDICATION: Ms. Jarrett has a history of falling on the day of presentation. She had the acute onset of pain and was brought to the Emergency Room. X-rays reveal a fracture of the femoral neck. She was admitted and I was consulted. After discussing risks, benefits and alternatives to operative therapy, she gave informed consent for the above procedure. PROCEDURE: The patient was brought to the Operating Room and placed in supine position. Anesthesia was induced and the patient was transitioned into the lateral decubitus position. The leg and hemipelvis were sterilely prepped and draped and an incision was made centered on the greater trochanter with extension both proximally and distally. Dissection was carried down to the iliotibial band which was sharply incised along the course of its fibers. A Charnley retractor was placed and the abductor musculature was identified. The anterior one-third of the abductor musculature was elevated off the greater trochanter using electrocautery and the capsule was incised. The femoral head was removed and the primary femoral neck cut was made. The acetabulum was examined and found to be free of any significant defect, therefore attention was focused on the femur. The femoral canal was sequentially broached until an appropriate sized trial prosthesis was placed. A trial femoral head was placed and the hip was reduced. The hip was taken through a full range of motion and demonstrated stability without impingement or pending dislocation and the leg length appeared to be paresthesias. Following trialing, the trial component was removed and the femoral canal was prepared for cementation of the prosthesis. A distal cement restrictor was placed and the final component was cemented into place. The excess cement was removed and the remaining cement was allowed to cure. The final head was impacted and the hip was reduced, taken through a full range of motion, and found to be stable without impingement. The wound was thoroughly irrigated and the abductor musculature was reapproximated to the greater trochanter through drill holes using Ethibond. The repair was augmented with PDS suture and the iliotibial band was subsequently closed. The subcutaneous tissues were closed with a combination of running and interrupted subcuticular stitches, a sterile dressing was placed , and the patient was transitioned into the supine position. The patient was awoken from anesthesia and taken to the Recovery Room in stable condition. POSTOPERATIVE INSTRUCTIONS: The patient will be weight-bearing as tolerated on postoperative day 1. COMPONENTS: [place] cemented stem, size 4, 46 mm head. [facility][id number] [facility]
== END 2017-10-15 11:55 | disposition swing bed (61) | DRG 470 ==
LOC: ER 14:36 → MS 16:54
PROVIDERS: ADMIT Nurse Practitioner; ATTEND Nurse Practitioner Family
PROC: 0SR90J9 Replacement of Right Hip Joint with Synthetic Substitute, Cemented, Open Approach (ICD-10-PCS; principal; 2017-10-15)
DX: S72.091A Other fracture of head and neck of right femur, initial encounter for closed fracture (principal); E87.1 Hypo-osmolality and hyponatremia; W01.0XXA Fall on same level from slipping, tripping and stumbling without subsequent striking against object, initial encounter; I10 Essential (primary) hypertension; E78.5 Hyperlipidemia, unspecified; F41.8 Other specified anxiety disorders; N32.81 Overactive bladder; Y92.017 Garden or yard in single-family (private) house as the place of occurrence of the external cause; I25.2 Old myocardial infarction; Y93.H2 Activity, gardening and landscaping; Z79.82 Long term (current) use of aspirin; Z88.0 Allergy status to penicillin; Z87.891 Personal history of nicotine dependence

== ENCOUNTER 2017-10-15 12:04 | Inpatient (IN) | payer MEDICARE, OTHER ==
--- NOTE | 2017-10-15 12:06 | HP ---
2.SUPERVISING PHYSICIAN: Sanket Geronimo M.D. HISTORY OF PRESENT ILLNESS: Ms. Jarrett is an 82 year-old female patient that was working in her yard with her son and tripped and fell resulting in pain in her right hip. She was transported to the [facility] via private vehicle where she was found to have a right hip femoral neck fracture. She was admitted initially on 10/11/17 and taken to surgery on the morning of 10/12/17 where she had a hemiarthroplasty of the right hip performed by Dr. Santiago Choudhary. She had no postoperative complications and was able to participate with her physical therapy, but was felt not yet ready to discharge home as she is 82 years of age and lives alone, therefore the initial plan was to try to get the patient to [facility] but the patient refuses to go to [facility], and opts to go to [facility]. The patient now is going to be admitted to [facility] for ongoing physical therapy and rehabilitation efforts. She is admitted to [facility] in stable condition. PAST MEDICAL HISTORY: 1. Myocardial infarction in 1979. 2. Hypertension. 3. Overactive bladder disease. 4. Hyperlipidemia. 5. Depression and anxiety. PAST SURGICAL HISTORY: 1. Status post right hip fracture repair with hemiarthroplasty. 2. Cholecystectomy. 3. Hysterectomy. 4. Cataract surgery. 5. Retinal detachment surgery. CURRENT MEDICATIONS: 1. Isosorbide 30 mg daily. 2. Protonix 40 mg daily. 3. Propranolol 20 mg b.i.d. 4. Simvastatin 80 mg daily. 5. Oxybutynin 5 mg twice daily. 6. Aspirin 81 mg daily. ALLERGIES: PENICILLIN. FAMILY HISTORY: Father of a myocardial infarction at age 63. SOCIAL HISTORY: She does have a distant history of smoking but denies any alcohol or illicit drug use. REVIEW OF SYSTEMS: CONSTITUTIONAL: Denies any fever or chills, or unintentional weight loss, but notes general malaise as related to postoperative recovery. HEENT: No headaches, vision changes, sore throat, nasal congestion. RESPIRATORY: No cough, shortness of breath, wheezing or exertional dyspnea. CARDIOVASCULAR: No chest pains, palpitations or lower extremity edema. GASTROINTESTINAL: No nausea, vomiting, diarrhea, constipation or abdominal pains. GENITOURINARY: No dysuria, hematuria or other urinary symptoms. MUSCULOSKELETAL: As noted in history of present illness. NEUROLOGIC: No seizures, syncope episodes, ataxia or paresthesias. PHYSICAL EXAMINATION: VITAL SIGNS: Temperature 98.6, pulse 78, blood pressure 101/78, respirations 18 , satting 94% on room air. Admission weight 76.7 kg. GENERAL: The patient is resting comfortably in the bedside chair. She has been up for breakfast. Appears to be comfortable and in no acute distress. CHEST: Lungs are clear to auscultation bilaterally without any rhonchi, wheezing or rales. CARDIOVASCULAR: Regular rate and rhythm without appreciable murmurs, gallops, or rubs. ABDOMEN: Obese but soft, non-tender. Positive bowel sounds. EXTREMITIES: Right hip has an island dressing in place which is clean and dry with no signs of infection or drainage. Distally pulses are strong. Capillary refill is brisk. She is moving all extremities ad kelly. No reported paresthesias. NEUROLOGIC: She is alert and oriented times three. Facial features are symmetrical. Extraocular movements are within normal limits. No notable nystagmus. Cranial nerves II-XII are grossly intact. LABORATORY: Pending repeat H&H in the morning. ASSESSMENT: 1. Postoperative day 3 for an acute right femoral neck fracture status post same level fall with a hemiarthroplasty repair performed by orthopedic surgeon , Dr. Choudhary. 2. Hypertension, stable. 3. History of previous myocardial infarctions. 4. Hyperlipidemia. PLAN: The patient is going to be admitted now to [facility] program for ongoing physical therapy and rehabilitation efforts to return the patient home back to her normal activities of daily living safely. She does live alone and will require additional days of physical therapy to ensure that she is safe once she is able to discharge. Will continue to follow the patient through her [facility] admission and treat as needed. Until discharge, continue to monitor and treat appropriately. #[id number] [facility]
[2017-10-15] MEDS ORDERED: SODIUM PHOS/BIPHOS ENEMA ADULT 133 ML BTTL PR PRN (12:35)
[2017-10-15] MEDS ORDERED: ACETAMINOPHEN 500 MG TAB PO PRN (12:35)
--- NOTE | 2017-10-15 12:39 | PCM.CORE ---
Physician DVT/VTE - Prophylaxis Currently: Patient already on anticoagulation therapy - xarelto - Nurse DVT Assessment & Total Each Risk Factor Represents 5 Points: Hip,Pelvis,leg Fx <1month Each Risk Factor Represents 3 Points: Age over 75 years, Medical PT with Hx of PR, CHF, Severe infection/sepsis Each Risk Factor is 1 Point: Obesity (BMI >25) DVT Assessment Score: 12 - 5 or more Very High Risk Treatments: Early Ambulation *, Sequential Compression Device
[2017-10-15] MEDS: RIVAROXABAN 10 MG TAB PO SCH (13:56)
[2017-10-15] MEDS: HYDROcodone 5MG/APAP 325MG 1 EA TAB PO PRN (19:55)
[2017-10-15] MEDS: tiZANidine 4 MG TAB PO PRN (20:57)
[2017-10-15] MEDS: SIMVASTATIN 20 MG TAB PO SCH (21:00)
[2017-10-15] MEDS: OXYBUTYNIN CL 5 MG TAB PO SCH (21:00)
[2017-10-15] MEDS: PROPRANOLOL HCL 20 MG TAB PO SCH (21:01)
[2017-10-16] MEDS ORDERED: PANTOPRAZOLE SODIUM TAB 40 MG PO ONE (04:10)
[2017-10-16] MEDS: PANTOPRAZOLE SODIUM TAB 40 MG PO SCH (06:07)
[2017-10-16] MEDS: HYDROcodone 5MG/APAP 325MG 1 EA TAB PO PRN ×4 (07:46→21:15)
[2017-10-16] MEDS ORDERED: ACETAMINOPHEN 325 MG TAB PO ONE (08:23)
[2017-10-16] MEDS ORDERED: diphenhydrAMINE HCL 50 MG/ML VIAL IV ONE (08:23)
[2017-10-16] MEDS ORDERED: SODIUM CHLORIDE 0.9% 500ML 500 ML IVS SCH (08:30)
[2017-10-16] MEDS ORDERED: SODIUM CHLORIDE 0.9% (FLUSH) 10 ML SYG IV PRN (08:32)
--- NOTE | 2017-10-16 08:58 | PN ---
DATE: 10/16/17 SUBJECTIVE: She is doing pretty well, but is having some difficulty with getting out of bed. OBJECTIVE: Afebrile. Vital signs stable. Wound is clean. There are no signs or symptoms of infection. She does have some bruising about the wound consistent with normal postoperative bruising. ASSESSMENT: Status post hemiarthroplasty. PLAN: She will continue with physical therapy. She is currently on [facility] status. #[id number] [facility]
[2017-10-16] MEDS: ASPIRIN EC 81 MG TAB PO SCH (09:13)
[2017-10-16] MEDS: PROPRANOLOL HCL 20 MG TAB PO SCH ×2 (09:13→20:37)
[2017-10-16] MEDS: DOCUSATE SODIUM 100 MG CAP PO SCH (09:13)
[2017-10-16] MEDS: RIVAROXABAN 10 MG TAB PO SCH (09:13)
[2017-10-16] MEDS: OXYBUTYNIN CL 5 MG TAB PO SCH ×2 (09:13→20:37)
[2017-10-16] MEDS: FLUoxetine HCL 20 MG CAP PO SCH (09:13)
[2017-10-16] MEDS: CHOLECALCIFEROL 2,000 IU TAB PO SCH (09:14)
[2017-10-16] MEDS: ISOSORBIDE MONONITRATE (IMDUR) 30 MG TAB PO SCH (09:14)
[2017-10-16] MEDS: PRENATAL MULTIVIT-MIN W/FE-FA 1 EA TAB PO SCH (10:31)
[2017-10-16] MEDS: IV SET AND CAP CHANGE INJ INJ SCH (13:29)
[2017-10-16] MEDS: tiZANidine 4 MG TAB PO PRN (18:33)
[2017-10-16] MEDS: SIMVASTATIN 20 MG TAB PO SCH (20:37)
[2017-10-17] MEDS: PANTOPRAZOLE SODIUM TAB 40 MG PO SCH (06:15)
[2017-10-17] MEDS: PRENATAL MULTIVIT-MIN W/FE-FA 1 EA TAB PO SCH (08:34)
[2017-10-17] MEDS: ASPIRIN EC 81 MG TAB PO SCH (08:34)
[2017-10-17] MEDS: DOCUSATE SODIUM 100 MG CAP PO SCH (08:34)
[2017-10-17] MEDS: PROPRANOLOL HCL 20 MG TAB PO SCH ×2 (08:34→21:01)
[2017-10-17] MEDS: OXYBUTYNIN CL 5 MG TAB PO SCH ×2 (08:34→21:01)
[2017-10-17] MEDS: HYDROcodone 5MG/APAP 325MG 1 EA TAB PO PRN ×2 (08:34→21:02)
[2017-10-17] MEDS: CHOLECALCIFEROL 2,000 IU TAB PO SCH (08:35)
[2017-10-17] MEDS: ISOSORBIDE MONONITRATE (IMDUR) 30 MG TAB PO SCH (08:35)
[2017-10-17] MEDS: FLUoxetine HCL 20 MG CAP PO SCH (08:35)
[2017-10-17] MEDS: RIVAROXABAN 10 MG TAB PO SCH (08:35)
[2017-10-17] MEDS: SULFA/TRIMETH 800/160 (DS) TAB 1 EA TAB PO SCH ×2 (11:00→21:01)
[2017-10-17] MEDS: tiZANidine 4 MG TAB PO PRN (13:25)
[2017-10-17] MEDS ORDERED: MAGNESIUM HYDROXIDE 30 ML UD PO ONE (17:24)
--- NOTE | 2017-10-17 19:03 | PN ---
DATE: 10/17/17 SUPERVISING PHYSICIAN: Joni Alvarez M.D. SUBJECTIVE: The patient is sitting up eating her meal. We discussed her lab results and her hemoglobin is 7.9. Again, she has refused any blood products. We discussed it at length and will repeat it tomorrow. At that time she will decide if she wants to have blood transfusion. She also complained of some constipation but no chest pain or shortness of breath. OBJECTIVE: VITAL SIGNS: She is afebrile, heart rate 77, blood pressure 125/65, respiratory rate 18, O2 sat 98% on 1 liter nasal cannula. RESPIRATORY: Essentially clear to auscultation bilaterally. CARDIAC: Regular rate and rhythm. NEUROLOGIC: She is awake, alert and oriented times three. Dressing to her right hip is dry and intact. LABORATORY: Hemoglobin 7.9, hematocrit 23.1. All other labs and films have been reviewed via the EMR. ASSESSMENT: 1. Postoperative day 5 for acute right femoral neck fracture status post same level fall with hemiarthroplasty repair performed by orthopedic surgeon, Dr. Santiago Choudhary. 2. Hypertension, stable. 3. Anemia with hemoglobin 7.9 today. The patient refuses all blood products. 4. History of previous myocardial infarctions. 5. Hyperlipidemia. PLAN: We will continue present supportive care. She will continue with her strengthening and conditioning per Physical Therapy. I will give her 1 dose of Milk of Magnesia tonight and repeat her H&H in the morning. At this point she has refused any blood productive, but we discussed the pros and cons of getting a transfusion. She has agreed for a repeat of the lab and we will discuss it in the morning unless her H&H has stabilized. Otherwise we will continue present supportive care, followup as needed. Dr. Alvarez is the collaborating physician available for consultation. #[id number] [facility]
[2017-10-17] MEDS: SIMVASTATIN 20 MG TAB PO SCH (21:01)
[2017-10-18] MEDS: PANTOPRAZOLE SODIUM TAB 40 MG PO SCH (06:26)
[2017-10-18] MEDS: CHOLECALCIFEROL 2,000 IU TAB PO SCH (08:40)
[2017-10-18] MEDS: SULFA/TRIMETH 800/160 (DS) TAB 1 EA TAB PO SCH ×2 (08:40→21:01)
[2017-10-18] MEDS: PRENATAL MULTIVIT-MIN W/FE-FA 1 EA TAB PO SCH (08:40)
[2017-10-18] MEDS: PROPRANOLOL HCL 20 MG TAB PO SCH ×2 (08:41→21:01)
[2017-10-18] MEDS: ISOSORBIDE MONONITRATE (IMDUR) 30 MG TAB PO SCH (08:41)
[2017-10-18] MEDS: ASPIRIN EC 81 MG TAB PO SCH (08:41)
[2017-10-18] MEDS: OXYBUTYNIN CL 5 MG TAB PO SCH ×2 (08:41→21:01)
[2017-10-18] MEDS: DOCUSATE SODIUM 100 MG CAP PO SCH (08:42)
[2017-10-18] MEDS: FLUoxetine HCL 20 MG CAP PO SCH (08:42)
[2017-10-18] MEDS: RIVAROXABAN 10 MG TAB PO SCH (08:42)
[2017-10-18] MEDS: HYDROcodone 5MG/APAP 325MG 1 EA TAB PO PRN ×2 (08:46→21:01)
[2017-10-18] MEDS: SIMVASTATIN 20 MG TAB PO SCH (21:01)
[2017-10-19] MEDS: PANTOPRAZOLE SODIUM TAB 40 MG PO SCH (06:15)
[2017-10-19] MEDS: CHOLECALCIFEROL 2,000 IU TAB PO SCH (09:17)
[2017-10-19] MEDS: ASPIRIN EC 81 MG TAB PO SCH (09:17)
[2017-10-19] MEDS: PROPRANOLOL HCL 20 MG TAB PO SCH ×2 (09:18→21:55)
[2017-10-19] MEDS: FLUoxetine HCL 20 MG CAP PO SCH (09:18)
[2017-10-19] MEDS: PRENATAL MULTIVIT-MIN W/FE-FA 1 EA TAB PO SCH (09:18)
[2017-10-19] MEDS: SULFA/TRIMETH 800/160 (DS) TAB 1 EA TAB PO SCH ×2 (09:19→21:55)
[2017-10-19] MEDS: HYDROcodone 5MG/APAP 325MG 1 EA TAB PO PRN ×2 (09:19→21:56)
[2017-10-19] MEDS: RIVAROXABAN 10 MG TAB PO SCH (09:19)
[2017-10-19] MEDS: IV SET AND CAP CHANGE INJ INJ SCH (09:19)
[2017-10-19] MEDS: ISOSORBIDE MONONITRATE (IMDUR) 30 MG TAB PO SCH (09:19)
[2017-10-19] MEDS: OXYBUTYNIN CL 5 MG TAB PO SCH ×2 (09:19→21:55)
[2017-10-19] MEDS: DOCUSATE SODIUM 100 MG CAP PO SCH (09:19)
--- NOTE | 2017-10-19 13:23 | PN ---
DATE: 10/18/17 SUBJECTIVE: Ms. Jarrett is doing well. She has no complaints. OBJECTIVE: Afebrile. Vital signs stable. She has a small amount of serous drainage on her dressing. Otherwise, the wound is clean. There are no signs or symptoms of infection. ASSESSMENT: Status post hemiarthroplasty. PLAN: She will continue with her weight-bearing as tolerated status. We will continue with inpatient rehab. #[id number] [facility]
[2017-10-19] MEDS ORDERED: diphenhydrAMINE HCL 25 MG CAP ONE (15:36)
[2017-10-19] MEDS ORDERED: diphenhydrAMINE HCL 25 MG CAP PO PRN (15:43)
[2017-10-19] MEDS: tiZANidine 4 MG TAB PO PRN (18:52)
[2017-10-19] MEDS: SIMVASTATIN 20 MG TAB PO SCH (21:55)
[2017-10-20] MEDS: PANTOPRAZOLE SODIUM TAB 40 MG PO SCH (06:08)
[2017-10-20] MEDS: HYDROcodone 5MG/APAP 325MG 1 EA TAB PO PRN ×2 (07:27→19:24)
[2017-10-20] MEDS: ASPIRIN EC 81 MG TAB PO SCH (09:22)
[2017-10-20] MEDS: SULFA/TRIMETH 800/160 (DS) TAB 1 EA TAB PO SCH ×2 (09:22→21:46)
[2017-10-20] MEDS: DOCUSATE SODIUM 100 MG CAP PO SCH (09:22)
[2017-10-20] MEDS: PRENATAL MULTIVIT-MIN W/FE-FA 1 EA TAB PO SCH (09:23)
[2017-10-20] MEDS: FLUoxetine HCL 20 MG CAP PO SCH (09:23)
[2017-10-20] MEDS: ISOSORBIDE MONONITRATE (IMDUR) 30 MG TAB PO SCH (09:23)
[2017-10-20] MEDS: PROPRANOLOL HCL 20 MG TAB PO SCH ×2 (09:23→21:47)
[2017-10-20] MEDS: OXYBUTYNIN CL 5 MG TAB PO SCH ×2 (09:23→21:47)
[2017-10-20] MEDS: CHOLECALCIFEROL 2,000 IU TAB PO SCH (09:23)
[2017-10-20] MEDS: MAGNESIUM HYDROXIDE 30 ML UD PO PRN (09:24)
[2017-10-20] MEDS: RIVAROXABAN 10 MG TAB PO SCH (09:24)
[2017-10-20] MEDS: SIMVASTATIN 20 MG TAB PO SCH (21:47)
[2017-10-21] MEDS: tiZANidine 4 MG TAB PO PRN ×2 (02:08→19:31)
[2017-10-21] MEDS: PANTOPRAZOLE SODIUM TAB 40 MG PO SCH (06:36)
[2017-10-21] MEDS: PROPRANOLOL HCL 20 MG TAB PO SCH ×2 (09:32→20:58)
[2017-10-21] MEDS: SULFA/TRIMETH 800/160 (DS) TAB 1 EA TAB PO SCH ×2 (09:32→20:58)
[2017-10-21] MEDS: ISOSORBIDE MONONITRATE (IMDUR) 30 MG TAB PO SCH (09:32)
[2017-10-21] MEDS: RIVAROXABAN 10 MG TAB PO SCH (09:32)
[2017-10-21] MEDS: FLUoxetine HCL 20 MG CAP PO SCH (09:32)
[2017-10-21] MEDS: PRENATAL MULTIVIT-MIN W/FE-FA 1 EA TAB PO SCH (09:32)
[2017-10-21] MEDS: DOCUSATE SODIUM 100 MG CAP PO SCH (09:32)
[2017-10-21] MEDS: HYDROcodone 5MG/APAP 325MG 1 EA TAB PO PRN ×3 (09:32→16:10)
[2017-10-21] MEDS: ASPIRIN EC 81 MG TAB PO SCH (09:32)
[2017-10-21] MEDS: CHOLECALCIFEROL 2,000 IU TAB PO SCH (09:33)
[2017-10-21] MEDS: OXYBUTYNIN CL 5 MG TAB PO SCH ×2 (09:34→20:58)
--- NOTE | 2017-10-21 18:39 | PN ---
DATE: 10/21/17 SUPERVISING PHYSICIAN: Joni Alvarez M.D. SUBJECTIVE: The patient continues to progress through her physical therapy and is doing well. She still has a little difficulty with returning back to bed. She has had no complications from fevers, constipation, nausea or vomiting. OBJECTIVE: VITAL SIGNS: Remain stable. Current temperature 98.1, pulse 79, blood pressure 114/60, respirations 16, satting 97% on room air. I's and O's have been well balanced. Weight currently is 75.9 kg. CHEST: Lungs are clear to auscultation bilaterally. HEART: Regular rate an.d rhythm. ABDOMEN: Soft, non-tender. Positive bowel sounds. EXTREMITIES: Right hip has a dressing in place. There is a large old ecchymotic area from where she fell but distally pulses are strong. Capillary refill is brisk. NEUROLOGIC: She is alert and oriented times three. LABORATORY: Last H&H was on 10/18/17 with hemoglobin 8.9, hematocrit 27.0. Will plan to repeat laboratory studies on Monday. ASSESSMENT: 1. Postoperative day 9 for acute right femoral neck fracture status post same level fall with hemiarthroplasty repair performed by orthopedic surgeon, Dr. Santiago Choudhary. 2. Hypertension, stable. 3. Anemia with stable hemoglobin. 4. History of previous myocardial infarctions. 5. Hyperlipidemia. PLAN: Will continue to follow the patient as she continues on her Swing Bed admission with physical therapy and rehabilitation efforts. Will monitor her H& H again on Monday and treat her appropriately based off clinical findings. The patient previously refused any blood with her hemoglobin initially on admission showing to be at 8.0 down to 7.9. Again, will anticipate possible discharge the mid part of next week if not earlier and repeat labs on Monday to further evaluate her H&H. Until discharge, will continue to monitor and treat appropriately. #[id number] [facility]
[2017-10-21] MEDS: SIMVASTATIN 20 MG TAB PO SCH (20:58)
[2017-10-22] MEDS: PANTOPRAZOLE SODIUM TAB 40 MG PO SCH (06:03)
[2017-10-22] MEDS: DOCUSATE SODIUM 100 MG CAP PO SCH (08:38)
[2017-10-22] MEDS: PROPRANOLOL HCL 20 MG TAB PO SCH ×2 (08:38→20:54)
[2017-10-22] MEDS: PRENATAL MULTIVIT-MIN W/FE-FA 1 EA TAB PO SCH (08:38)
[2017-10-22] MEDS: ISOSORBIDE MONONITRATE (IMDUR) 30 MG TAB PO SCH (08:38)
[2017-10-22] MEDS: ASPIRIN EC 81 MG TAB PO SCH (08:38)
[2017-10-22] MEDS: OXYBUTYNIN CL 5 MG TAB PO SCH ×2 (08:38→20:54)
[2017-10-22] MEDS: SULFA/TRIMETH 800/160 (DS) TAB 1 EA TAB PO SCH ×2 (08:38→20:54)
[2017-10-22] MEDS: CHOLECALCIFEROL 2,000 IU TAB PO SCH (08:39)
[2017-10-22] MEDS: FLUoxetine HCL 20 MG CAP PO SCH (08:39)
[2017-10-22] MEDS: RIVAROXABAN 10 MG TAB PO SCH (08:39)
[2017-10-22] MEDS: tiZANidine 4 MG TAB PO PRN ×2 (08:39→20:54)
[2017-10-22] MEDS: MAGNESIUM HYDROXIDE 30 ML UD PO PRN (08:47)
[2017-10-22] MEDS: HYDROcodone 5MG/APAP 325MG 1 EA TAB PO PRN ×2 (10:25→14:35)
[2017-10-22] MEDS ORDERED: FUROSEMIDE INJ 20 MG/2 ML VIAL ONE (17:25)
[2017-10-22] MEDS: SIMVASTATIN 20 MG TAB PO SCH (20:53)
[2017-10-23] MEDS: HYDROcodone 5MG/APAP 325MG 1 EA TAB PO PRN ×2 (06:11→16:51)
[2017-10-23] MEDS: PANTOPRAZOLE SODIUM TAB 40 MG PO SCH (06:11)
[2017-10-23] MEDS ORDERED: SULFA/TRIMETH 800/160 (DS) TAB 1 EA TAB ONE (09:29)
[2017-10-23] MEDS: CHOLECALCIFEROL 2,000 IU TAB PO SCH (09:33)
[2017-10-23] MEDS: ASPIRIN EC 81 MG TAB PO SCH (09:33)
[2017-10-23] MEDS: PRENATAL MULTIVIT-MIN W/FE-FA 1 EA TAB PO SCH (09:33)
[2017-10-23] MEDS: DOCUSATE SODIUM 100 MG CAP PO SCH (09:33)
[2017-10-23] MEDS: OXYBUTYNIN CL 5 MG TAB PO SCH ×2 (09:33→21:22)
[2017-10-23] MEDS: ISOSORBIDE MONONITRATE (IMDUR) 30 MG TAB PO SCH (09:33)
[2017-10-23] MEDS: PROPRANOLOL HCL 20 MG TAB PO SCH ×2 (09:33→21:22)
[2017-10-23] MEDS: RIVAROXABAN 10 MG TAB PO SCH (09:33)
[2017-10-23] MEDS: FLUoxetine HCL 20 MG CAP PO SCH (09:33)
[2017-10-23] MEDS: SULFA/TRIMETH 800/160 (DS) TAB 1 EA TAB PO SCH (09:34)
[2017-10-23] MEDS: tiZANidine 4 MG TAB PO PRN ×2 (11:18→21:22)
--- NOTE | 2017-10-23 13:18 | PN ---
SUPERVISING PHYSICIAN: Froy Erazo MD DATE: 10/23/17 SUBJECTIVE: The patient is sitting up in a chair and is actually crying at this time. I have asked her what was wrong but she really did not want to talk about it. However, physically she has been able to get up and walk around. She has some fear regarding her physical capabilities. OBJECTIVE: VITAL SIGNS: Blood pressure 121/71. Heart rate 64. Respiratory rate 18. Temperature 97.4. Oxygen saturation 97%. GENERAL: Ms. Jarrett is a 82-year-old female in no distress currently. NEUROLOGIC: Alert and oriented. LUNGS: Clear to auscultation bilaterally. CARDIOVASCULAR: Regular rate and rhythm. Normal S1, S2. ABDOMEN: Soft. Positive bowel sounds. EXTREMITIES: Right hip incision shows no signs or symptoms of infection. Peripheral pulses 2+. Capillary refill is less than 2 seconds. LABORATORY: Hemoglobin 8.6, hematocrit 25.8. ASSESSMENT: 1. Postoperative day 11 after right femoral neck fracture repair. 2. Hypertension. 3. Anemia. 4. History of myocardial infarction. 5. Hyperlipidemia. PLAN: I have spoken with physical therapy and they feel that she would benefit from two more days in the Swing Bed Unit. At that point, they feel like she can be discharged home with home health. I did discuss this with her and she seemed once again to have a little bit of fear about her physical capability especially due to the fact that her daughter will be going out of town and her son will be the only one here, but not consistently able to help her. I have told her that we will continue to work over the next couple of days on her mobility and hopefully by Monday she will have more confidence in her physical movement. Her repeat hemoglobin was stable this morning with no acute drop. We will plan on discharging her Monday with home health. #[id number] [facility]
--- NOTE | 2017-10-23 13:34 | PN ---
DATE: 10/23/17 SUBJECTIVE: She is doing well. She is up into a chair. She has no significant pain right now. OBJECTIVE: Afebrile. Vital signs stable. Wounds are clean. There are no signs or symptoms of infection. ASSESSMENT: Status post Gamma nail. PLAN: The plan at this point is to continue on her current weight-bearing status. She is currently on Swing Bed status. #[id number] [facility]
[2017-10-23] MEDS: SIMVASTATIN 20 MG TAB PO SCH (21:22)
[2017-10-23] MEDS: MAGNESIUM HYDROXIDE 30 ML UD PO PRN (21:22)
[2017-10-24] MEDS: PANTOPRAZOLE SODIUM TAB 40 MG PO SCH (06:15)
[2017-10-24] MEDS: HYDROcodone 5MG/APAP 325MG 1 EA TAB PO PRN ×3 (06:41→17:54)
[2017-10-24] MEDS: DOCUSATE SODIUM 100 MG CAP PO SCH (08:29)
[2017-10-24] MEDS: PRENATAL MULTIVIT-MIN W/FE-FA 1 EA TAB PO SCH (08:29)
[2017-10-24] MEDS: CHOLECALCIFEROL 2,000 IU TAB PO SCH (08:30)
[2017-10-24] MEDS: PROPRANOLOL HCL 20 MG TAB PO SCH ×2 (08:30→21:01)
[2017-10-24] MEDS: RIVAROXABAN 10 MG TAB PO SCH (08:30)
[2017-10-24] MEDS: OXYBUTYNIN CL 5 MG TAB PO SCH ×2 (08:30→21:01)
[2017-10-24] MEDS: FLUoxetine HCL 20 MG CAP PO SCH (08:31)
[2017-10-24] MEDS: ISOSORBIDE MONONITRATE (IMDUR) 30 MG TAB PO SCH (08:31)
[2017-10-24] MEDS: ASPIRIN EC 81 MG TAB PO SCH (08:31)
[2017-10-24] MEDS: tiZANidine 4 MG TAB PO PRN (21:01)
[2017-10-24] MEDS: SIMVASTATIN 20 MG TAB PO SCH (21:01)
[2017-10-24 21:39] VITALS: TEMP 98.1
[2017-10-25] MEDS: PANTOPRAZOLE SODIUM TAB 40 MG PO SCH (06:07)
[2017-10-25 07:40] VITALS: BP 147/76
--- NOTE | 2017-10-25 08:03 | PN ---
DATE: 10/24/17 SUBJECTIVE: She is doing well and is able to ambulate and get out of bed with minimal assist. OBJECTIVE: Afebrile. Vital signs stable. Wound is clean. There are no signs or symptoms of infection. ASSESSMENT: Status post hemiarthroplasty. PLAN: The plan at this point is for her to likely be discharged in a day or two. She will be getting home health for therapy. #[id number] [facility]
[2017-10-25] MEDS: FLUoxetine HCL 20 MG CAP PO SCH (08:15)
[2017-10-25] MEDS: RIVAROXABAN 10 MG TAB PO SCH (08:15)
[2017-10-25] MEDS: DOCUSATE SODIUM 100 MG CAP PO SCH (08:15)
[2017-10-25] MEDS: CHOLECALCIFEROL 2,000 IU TAB PO SCH (08:15)
[2017-10-25] MEDS: PROPRANOLOL HCL 20 MG TAB PO SCH (08:15)
[2017-10-25] MEDS: ISOSORBIDE MONONITRATE (IMDUR) 30 MG TAB PO SCH (08:16)
[2017-10-25] MEDS: OXYBUTYNIN CL 5 MG TAB PO SCH (08:16)
[2017-10-25] MEDS: ASPIRIN EC 81 MG TAB PO SCH (08:16)
[2017-10-25 10:18] VITALS: O2SAT 96
[2017-10-25] MEDS: HYDROcodone 5MG/APAP 325MG 1 EA TAB PO PRN (10:29)
--- NOTE | 2017-10-25 10:47 | DS ---
SUPERVISING PHYSICIAN: Froy Erazo MD DISCHARGE DIAGNOSES: 1. Postoperative day #13 after right femoral neck fracture repair. 2. Hypertension. 3. Anemia. 4. History of myocardial infarction. 5. Hyperlipidemia. HISTORY OF PRESENT ILLNESS: This is an 82-year-old female patient who was originally admitted to the hospital on 10/11/17 after she tripped in her yard and fell. There was no loss of consciousness. In the Emergency Room, she was found to have a right femoral neck fracture. She was given pain medications and Dr. Choudhary, orthopedic surgeon, did a right femoral neck repair on 10/12/17. She had an hemiarthroplasty done to the right hip. She progressed physical therapy land competed her postoperative phase without any issues except she did have a hemoglobin that dropped as low as 7.9 with hematocrit 23.1 on 10/17/17. At that point, she refused any blood products and the following day, her hemoglobin was 8.9 and hematocrit 27.0. She was discharged from the Acute Care setting on 10/15/17 and re-admitted for Swing Bed admission to continue her physical therapy for strengthening and conditioning. HOSPITAL COURSE: At this point, she continues to progress well and she is at the point now that she can be discharged home. DISCHARGE PLAN: The patient will be discharged home in stable condition. She is to have [facility] as well as [facility]. She does live alone, but her family will be having someone stay with her daily until she is safe to stay alone. She will continue with 22 additional days of Xarelto per Dr. Choudhary's protocol. She is to resume her previous medications and increase her activity as per physical therapy. She is to followup with Dr. Choudhary and her primary care physician, Dr. Muniz, within 1 to 2 weeks. She is to return to the hospital or call Dr. Choudhary or Dr. Muniz for any further problems or complications. DISCHARGE MEDICATIONS: 1. Propranolol. 2. Pantoprazole. 3. Simvastatin. 4. Isosorbide. 5. Oxybutynin. 6. Aspirin. 7. Fluoxetine. 8. Vitamin D. 9. Xarelto. 10. Zanaflex. 11. Colace. 12. Hydrocodone. #[id number] [facility]
== END 2017-10-25 11:32 | disposition home health service (06) | DRG 561 ==
LOC: MS 12:04 → OBSVTOIN 12:04
PROVIDERS: ADMIT Nurse Practitioner Family; ATTEND Nurse Practitioner Acute Care
PROC: F07Z9ZZ Gait Training/Functional Ambulation Treatment (ICD-10-PCS; principal; 2017-10-15)
DX: Z47.1 Aftercare following joint replacement surgery (principal); Z96.641 Presence of right artificial hip joint; I10 Essential (primary) hypertension; D64.9 Anemia, unspecified; E78.5 Hyperlipidemia, unspecified; I25.2 Old myocardial infarction; Z79.82 Long term (current) use of aspirin; F32.9 Major depressive disorder, single episode, unspecified; Z88.0 Allergy status to penicillin; N32.81 Overactive bladder; F41.9 Anxiety disorder, unspecified

== ENCOUNTER → 2017-12-22 | Outpatient (CLI) | payer MEDICARE, OTHER | LOC: GMAL 10:51 | PROVIDERS: ATTEND Family Medicine | DX: E55.9 Vitamin D deficiency, unspecified (principal) ==

== ENCOUNTER → 2018-04-16 | Outpatient (CLI) | payer MEDICARE, OTHER ==
--- NOTE | 2018-04-23 15:29 | MAM ---
EXAM DESCRIPTION: Screening Mammogram,Bilateral: Digital Mammography CLINICAL HISTORY: 82 years Female SCREENING . No complaints. No personal history of breast cancer. Remote family history of breast cancer. Childbirth. Postmenopausal. Has taken HRT 5 or more years ago. Prior left breast biopsy was benign. MEGHANA risk evaluation assessment: Lifetime risk is: 2.9%. COMPARISON: Bilateral screening digital breast tomosynthesis 04/12/2017. TECHNIQUE: Bilateral CC and MLO projection full-field images, digital screening breast tomosynthesis technique. CAD was utilized. Note: CC tomosynthesis of the left breast was repeated on 04/23/2018. FINDINGS: The breast parenchymal density pattern is: Heterogeneously dense breast tissue, which may obscure small masses. No skin thickening or nipple retraction axillary lymph nodes left breast. Prior biopsy site in the upper lateral quadrant of the posterior left breast is more contracted than on the prior study. More peripheral architectural distortion is stable in this tissue. No significant mammographic abnormality. Bilateral solitary microcalcifications. Bilateral secretory calcifications. No new focal, stellate mass or density, focal asymmetry , and no suspicious microcalcifications bilaterally. IMPRESSION: Benign exam. BIRAD CATEGORY: 2 BENIGN FINDINGS. RECOMMENDATIONS: FOLLOW UP: Routine digital bilateral screening, one year interval from April 2018. Written communication explaining the IMPRESSION and follow-up, will be mailed to the patient and referring health care provider. According to the [employer], yearly mammograms are recommended starting at age 40 and continuing as long as a woman is in good health. Any breast change noted on a breast self-exam should be reported promptly to the patient's healthcare provider. Breast MRI is recommended for women with an approximately 20-25% or greater lifetime risk of breast cancer, including women with a strong family history of breast or ovarian cancer and women who have been treated for Hodgkin's disease. A negative mammographic report should not delay tissue diagnosis in patients with significant clinical history or physical findings. Extremely dense breast tissue limits the sensitivity of digital mammography. Electronically signed by: Real Ruffin MD 04/23/2018 3:27 PM CDT
== END ==
LOC: MAMMO 09:30
PROVIDERS: ATTEND Family Medicine
DX: Z12.31 Encounter for screening mammogram for malignant neoplasm of breast (principal)

== ENCOUNTER → 2018-05-03 | Outpatient (CLI) | payer MEDICARE ==
--- NOTE | 2018-05-03 12:51 | RAD ---
EXAM DESCRIPTION: Hip,Right 2 Views CLINICAL HISTORY: HIP PAIN COMPARISON: October 12, 2017 TECHNIQUE: AP/frog leg lateral FINDINGS: Two views right hip demonstrate a bipolar prosthesis in place articulating with the [place]ongo acetabulum. Alignment is anatomic. No evidence of loosening or dislocation is noted. No fracture or displacement evident. IMPRESSION: Femoral head and neck prosthesis replacement on the right with normal appearance and normal articulation with the morongo acetabulum. Electronically signed by: Joni Rodriguez MD 05/03/2018 12:50 PM CDT
== END ==
LOC: RAD 10:01
PROVIDERS: ATTEND Orthopaedic Surgery
DX: M25.551 Pain in right hip (principal); Z96.641 Presence of right artificial hip joint